=== PATIENT | female | born 1980 | race Caucasian/White ===

== ENCOUNTER → 2016-09-07 | Outpatient (CLI) | payer OTHER ==
[~2016-09-07] MED LIST: [UNRECOGNIZED DRUG - REMARK]
== END | disposition home or self-care (01) ==
LOC: C.PAPS 10:16
PROVIDERS: ATTEND Obstetrics & Gynecology
DX: Z01.419 Encounter for gynecological examination (general) (routine) without abnormal findings (principal)

== ENCOUNTER → 2016-11-19 | Outpatient (CLI) | payer OTHER ==
[2016-11-19 13:36] LABS: CHOLESTEROL/HDL RATIO 5.4; THYROID STIMULATING HORMONE 4.2 uIu/ml (0.300-4.500)
== END | disposition home or self-care (01) ==
LOC: C.LAB 09:13
PROVIDERS: ATTEND Family Medicine
DX: Z13.220 Encounter for screening for lipoid disorders (principal); Z13.1 Encounter for screening for diabetes mellitus; E03.4 Atrophy of thyroid (acquired)

== ENCOUNTER → 2016-12-29 | Outpatient (CLI) | payer OTHER | END | disposition home or self-care (01) | LOC: C.LAB 10:05 | PROVIDERS: ATTEND Family Medicine | DX: E03.4 Atrophy of thyroid (acquired) (principal) ==

== ENCOUNTER → 2017-02-22 | Outpatient (CLI) | payer OTHER | END | disposition home or self-care (01) | LOC: C.LAB 11:14 | PROVIDERS: ATTEND Family Medicine | DX: E03.4 Atrophy of thyroid (acquired) (principal) ==

== ENCOUNTER → 2017-11-01 | Outpatient (CLI) | payer OTHER | END | disposition home or self-care (01) | LOC: C.PAPS 11:47 | PROVIDERS: ATTEND Obstetrics & Gynecology | DX: Z12.4 Encounter for screening for malignant neoplasm of cervix (principal) ==

== ENCOUNTER 2020-12-29 08:17 | Observation (INO) ==
[~2020-12-29 08:17] MED LIST changes: +SODIUM CHLORIDE 0.9% 1000ML 1,000 ML IV SCH; -[UNRECOGNIZED DRUG - REMARK]
--- NOTE | 2020-12-29 08:46 | Emergency Department Note ---
Impression & Plan Spontaneous miscarriage, Hemorrhage ED Provider Note CHIEF COMPLAINT: Miscarriage HISTORY OF PRESENTING ILLNESS: This is a 40-year-old female who presents to the emergency department via EMS from home with concern for miscarriage. The patient states that she had a sudden onset of severe abdominal cramping and then had a gush of bleeding this morning and the fetus passed but is still attached. Patient has been evaluated for vaginal bleeding in the emergency department, she was here a few days ago and the ultrasound was reassuring. She did have a subchorionic hematoma. The patient saw her MANAGER MANAGED CARE yesterday and again ultrasound imaging was reassuring at that time. She is G1, P0 and did utilize IVF for this . She is no longer having any abdominal pain and rates her pain level 0/10. She has not been having heavy vaginal bleeding since the initial gush of blood. She denies any chest pain, chest tightness, shortness of breath, palpitations, lightheadedness or syncope. She denies nausea or vomiting. She is O+ blood type. REVIEW OF SYSTEMS: A complete 10 point review of systems was reviewed with the patient with pertinent positives and negatives as per history of present illness. All else were negative. PAST MEDICAL HISTORY: Hypothyroidism SOCIAL HISTORY: Lives at home, she denies tobacco use ALLERGIES: No known allergies PHYSICAL EXAM: CONSTITUTIONAL: Pleasant and cooperative. Nontoxic-appearing and in no acute distress. Well appearing and well nourished. HEENT: Normocephalic, atraumatic. NECK: Supple, full active range of motion without discomfort. RESPIRATORY: Clear to auscultation bilaterally with no wheezing, crackles, rhonchi or stridor. Equal expansion bilaterally. CARDIOVASCULAR: Regular rate and rhythm with no murmurs, rubs or gallops. Normal peripheral perfusion. No edema. GASTROINTESTINAL: Soft, nontender to palpation, nondistended. No palpable masses or HSM. Bowel sounds present in all quadrants. No CVA tenderness bilaterally. PELVIC EXAM: VULVA: No ulcers, vesicles or atrophy. VAGINA: Moderate dark red blood with small clots, minimal active bleeding. No tissue palpated within the vaginal canal, no foul odor. CERVIX: Os is open to two finger widths, nontender, no cervical motion tenderness. UTERUS: Enlarged size, nontender, not boggy. ADNEXAE: No masses or tenderness. A nurse was present as a personnel worker during the examination. MUSCULOSKELETAL: Full range of motion of all joints without discomfort. INTEGUMENTARY: No rash or other significant dermatologic conditions noted. NEUROLOGIC: Alert and oriented X 4 with normal affect. Normal strength and sensation in all 4 extremities. Normal speech. Normal gait observed. ED COURSE AND MEDICAL DECISION MAKING: CC: Patient presenting with complaint of miscarriage DIFFERENTIAL DIAGNOSIS: Includes, but not limited to miscarriage incomplete versus complete, acute anemia, hemorrhage, bleeding dyscrasia, trauma, infection, as well as others were entertained. INTERPRETATION OF LABS: Mild leukocytosis and anemia (consistent with baseline), normal platelets. MEDICATION RECONCILIATION: I attest that I have personally reviewed the patient's current medication list. INITIAL VITAL SIGNS REVIEW: I reviewed the patient's initial vital signs and interpret them as follows: T: Afebrile; BP: Hypertensive; HR: Within normal limits; RR: Within normal limits; Pulse Ox: Within normal limits on room air. MDM SUMMARY: Patient was evaluated at bedside, history and physical exam performed. Patient is alert and oriented, in no acute distress, resting calmly in the stretcher. She is afebrile and nontoxic-appearing, does not appear to be significantly dehydrated or anemic. No abdominal tenderness on exam. On exam, a fetus consistent with 13 weeks gestation is protruding from the vaginal opening, fully intact, and still attached by the umbilical cord. There was no active vaginal bleeding noted externally. The fetus was detached from the umbilical cord and handed to the patient for her to hold him. Cardiac monitoring: An order was placed for continuous cardiac monitoring. The monitor shows a rate of 94 bpm with normal sinus rhythm. I spoke with Dr. Sequeira, she has active deliveries in process, and will come down to see the patient as soon as she can. She also notes that they will provide bereavement care for the passed baby. The family would like to take the baby home with them to have a service. An internal vaginal exam was performed, there was no placental tissue within the vaginal canal. The cervical os is open, not actively bleeding. Patient was also discussed with my ED attending Dr. Chacon, who agrees with my assessment, plan, and disposition. Dr. Sequeira did call back for an update on the patient, the patient has not had any progression of the miscarriage. She recommended that I give 600 mcg Cytotec, she requested that an IV be placed and she be given some fluids as well as a CBC and type and screen be ordered, these orders were placed. She will be down to see the patient shortly. She plans to admit the patient for observation. Shortly after the patient received the Cytotec, I was called to the bedside by nursing staff noting that the patient was having significant heavy vaginal bleeding. I performed a repeat pelvic exam, noting several clots within the vagina with large gushes of blood. Cervix was not visualized. The patient complained of cramping, she was given 15 mg IV Toradol. Clots were manually removed from the vagina by hand and I did attempt uterine massage, however the patient continued to have very heavy bleeding. The patient also started to become more tachycardic and her blood pressure is trending down. A second IV was placed by nursing and repeat H/H was sent to the lab. A second Liter bag of fluids was started. Dr. Chacon was called to the bedside to evaluate the patient. The patient did have a significant drop in her blood pressure, both IV fluid bags are wide open and the patient has remained conscious, though she does note feeling near syncopal. Additional pelvic exam was performed by Dr. Chacon, several more clots were evacuated and some tissue was removed from the cervical os and the bleeding did slow somewhat. The patient's blood pressure is improving and she has remained alert and oriented. Dr. Sequeira at bedside to further evaluate the patient, she was able to locate and remove the placenta. The patient is being transported upstairs for further observation to determine whether she may need surgery. Patient reassessed multiple times throughout ED stay, her blood pressure has stabilized and she is feeling improved. Hgb did drop 2.5 points on recheck, Dr. Sequeira is aware. The patient was monitored closely during the entirety of her ED stay. The patient and her were frequently updated and all questions were answered to the best of my ability. The patient was stable at the time of admission. CRITICAL CARE NOTE: I have personally spent greater than 45 minutes of critical care time in the direct management of this patient. This includes bedside care, interpretation of diagnostic studies, and testing, discussion with consultants, patient, and family members, and other required patient management activities. This 45 minutes is in excess of all separately billable procedures. The chart was completed utilizing [employer] Speech voice recognition software. Grammatical errors, random word insertions, pronoun errors, and incomplete sentences are an occasional consequence of this system due to software limitat ions, ambient noise, and hardware issues. Any formal questions or concerns about the content, text, or information contained within the body of this dictation should be directly addressed to the nurse practitioner for clarification. Past Med/Surg History Medical History (Updated 12/29/20 @ 17:15 by RICHARD Lyons) History of chicken pox Hypothyroid in , antepartum Spontaneous Surgical History H/O sinus surgery [place] teeth removed Family History Grandmother (Maternal) Factor 5 Leiden mutation, heterozygous Father Stroke Myocardial infarction Grandfather (Paternal) Stroke Diabetes Denies family history of Ovarian cancer Prostate cancer Breast cancer Colorectal cancer Social History Smoking Status: Never smoker Second Hand Exposure: No; Hx Alcohol Use: No Hx Substance Use: No Preferred Language: Sierra Leonean marital status: marital status details: Catracho Camarena (40) [phone] Current Living Situation: Spouse Current Living Situation Comment: Lives with spouse, mother in law, 2 dogs current occupational status: employed 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 Feels Safe at Home: Yes Allergies Allergies Allergy/AdvReac Type Severity Reaction Status Date / Time No Known Allergies Allergy Mild Verified 12/29/20 09:23 Home Meds Home Medications Medication Instructions Recorded Confirmed cetirizine 10 mg tablet 10 mg PO DAILY PRN 11/16/20 12/29/20 levothyroxine 175 mcg tablet 175 mcg PO DAILY 11/16/20 12/29/20 [id number] fumarate-FA 1 tab PO DAILY 12/15/20 12/29/20 [] cholecalciferol (vitamin D3) 125 mcg PO DAILY 12/15/20 12/29/20 [Vitamin D3] inositol 0 mg PO DAILY 12/15/20 12/29/20 omega 3-shk-hmu-fish oil [Fish Oil] 1 cap PO DAILY 12/15/20 12/29/20 Results & Data (ED) Vital Signs Vital Signs - 24 hr 12/29/20 08:23 12/29/20 11:47 12/29/20 13:00 Temperature 36.9 C Temperature Source Oral Pulse Rate 92 H 118 H Pulse Rate [Radial] 88 Pulse Rate from SpO2 Sensor 116 H Pulse Rhythm Regular Pulse Rhythm [Radial] Regular Pulse Strength Normal Pulse Strength [Radial] Normal Respiratory Rate 18 20 13 Respiratory Effort / Characteristics Non-Labored Spontaneous Respiratory Depth Normal Normal Respiratory Pattern Regular Blood Pressure 148/92 H 132/77 Blood Pressure [Right Arm] 128/78 Blood Pressure Mean 110 95 Blood Pressure Mean [Right Arm] 94 Blood Pressure Position [Right Arm] Lying Pulse Oximetry 98 100 97 Oxygen Delivery Method Room Air Room Air Sepsis Recent Fever Within 48 Hours No Sepsis New/Unexplained Change in Mental Status No Sepsis Action Taken by Nursing No Action Required 12/29/20 13:04 12/29/20 13:05 12/29/20 13:08 Temperature Temperature Source Pulse Rate 114 H 126 H 98 H Pulse Rate [Radial] Pulse Rate from SpO2 Sensor 117 H 124 H Pulse Rhythm Pulse Rhythm [Radial] Pulse Strength Pulse Strength [Radial] Respiratory Rate 19 18 14 Respiratory Effort / Characteristics Respiratory Depth Respiratory Pattern Blood Pressure 115/73 57/46 L Blood Pressure [Right Arm] Blood Pressure Mean 87 49 Blood Pressure Mean [Right Arm] Blood Pressure Position [Right Arm] Pulse Oximetry 99 100 Oxygen Delivery Method Sepsis Recent Fever Within 48 Hours Sepsis New/Unexplained Change in Mental Status Sepsis Action Taken by Nursing 12/29/20 13:10 12/29/20 13:13 12/29/20 13:15 Temperature Temperature Source Pulse Rate 99 H 99 H 102 H Pulse Rate [Radial] Pulse Rate from SpO2 Sensor 100 H 104 H Pulse Rhythm Pulse Rhythm [Radial] Pulse Strength Pulse Strength [Radial] Respiratory Rate 16 14 9 L Respiratory Effort / Characteristics Respiratory Depth Respiratory Pattern Blood Pressure 67/57 L 105/63 Blood Pressure [Right Arm] Blood Pressure Mean 60 77 Blood Pressure Mean [Right Arm] Blood Pressure Position [Right Arm] Pulse Oximetry 99 98 Oxygen Delivery Method Sepsis Recent Fever Within 48 Hours Sepsis New/Unexplained Change in Mental Status Sepsis Action Taken by Nursing 12/29/20 13:17 12/29/20 13:21 12/29/20 13:25 Temperature Temperature Source Pulse Rate 104 H 129 H 108 H Pulse Rate [Radial] Pulse Rate from SpO2 Sensor 105 H 130 H 107 H Pulse Rhythm Pulse Rhythm [Radial] Pulse Strength Pulse Strength [Radial] Respiratory Rate 17 16 18 Respiratory Effort / Characteristics Respiratory Depth Respiratory Pattern Blood Pressure 113/73 112/84 110/77 Blood Pressure [Right Arm] Blood Pressure Mean 86 93 88 Blood Pressure Mean [Right Arm] Blood Pressure Position [Right Arm] Pulse Oximetry 98 98 100 Oxygen Delivery Method Sepsis Recent Fever Within 48 Hours Sepsis New/Unexplained Change in Mental Status Sepsis Action Taken by Nursing 12/29/20 13:30 12/29/20 13:36 12/29/20 13:41 Temperature Temperature Source Pulse Rate 102 H 106 H 103 H Pulse Rate [Radial] Pulse Rate from SpO2 Sensor 102 H 99 H Pulse Rhythm Pulse Rhythm [Radial] Pulse Strength Pulse Strength [Radial] Respiratory Rate 12 22 19 Respiratory Effort / Characteristics Respiratory Depth Respiratory Pattern Blood Pressure 121/75 137/101 H 114/67 Blood Pressure [Right Arm] Blood Pressure Mean 90 113 82 Blood Pressure Mean [Right Arm] Blood Pressure Position [Right Arm] Pulse Oximetry 100 98 Oxygen Delivery Method Sepsis Recent Fever Within 48 Hours Sepsis New/Unexplained Change in Mental Status Sepsis Action Taken by Nursing 12/29/20 13:45 12/29/20 13:50 Temperature Temperature Source Pulse Rate 99 H 99 H Pulse Rate [Radial] Pulse Rate from SpO2 Sensor 101 H 100 H Pulse Rhythm Pulse Rhythm [Radial] Pulse Strength Pulse Strength [Radial] Respiratory Rate 10 L 14 Respiratory Effort / Characteristics Respiratory Depth Respiratory Pattern Blood Pressure 112/78 121/74 Blood Pressure [Right Arm] Blood Pressure Mean 89 89 Blood Pressure Mean [Right Arm] Blood Pressure Position [Right Arm] Pulse Oximetry 100 100 Oxygen Delivery Method Sepsis Recent Fever Within 48 Hours Sepsis New/Unexplained Change in Mental Status Sepsis Action Taken by Nursing Laboratory Data Result diagrams: 12/29/20 13:15 Lab Results 12/29/20 12/29/20 12/29/20 Range/Units 11:02 11:02 11:44 WBC 13.48 H (4.8-10.8) K/uL RBC 3.73 L (4.2-5.4) M/uL Hgb 11.5 L (12.0-16.0) g/dL Hct 34.5 L (37-47) % MCV 92.5 (80-100) fL MCH 30.8 (25-34) pg MCHC 33.3 (32-36) g/dL RDW Std Deviation 47.4 H (36.4-46.3) fL RDW Coeff of Raman 14.1 (11.5-14.5) % Plt Count 254 (130-400) K/uL MPV 11.0 H (7.4-10.4) fL Immature Gran % (Auto) 0.3 % Neut % (Auto) 86.9 % Lymph % (Auto) 8.9 % [place] % (Auto) 3.6 % Eos % (Auto) 0.2 % Baso % (Auto) 0.1 % Neut # (Auto) 11.72 H (1.4-6.5) K/uL Lymph # (Auto) 1.20 (1.2-3.4) K/uL [place] # (Auto) 0.48 (0.11-0.59) K/uL Eos # (Auto) 0.03 (0-0.5) K/uL Baso # (Auto) 0.01 (0-0.2) K/uL Immature Gran # (Auto) 0.04 H (0.00-0.02) K/uL COVID-19 Eval Order Covid19 at [facility] SARS-CoV-2 (PCR) (Negative) Blood Type O Positive Antibody Screen NEGATIVE Crossmatch See Detail 12/29/20 12/29/20 Range/Units 11:44 13:15 WBC (4.8-10.8) K/uL RBC (4.2-5.4) M/uL Hgb 9.0 L (12.0-16.0) g/dL Hct 26.8 L (37-47) % MCV (80-100) fL MCH (25-34) pg MCHC (32-36) g/dL RDW Std Deviation (36.4-46.3) fL RDW Coeff of Raman (11.5-14.5) % Plt Count (130-400) K/uL MPV (7.4-10.4) fL Immature Gran % (Auto) % Neut % (Auto) % Lymph % (Auto) % [place] % (Auto) % Eos % (Auto) % Baso % (Auto) % Neut # (Auto) (1.4-6.5) K/uL Lymph # (Auto) (1.2-3.4) K/uL [place] # (Auto) (0.11-0.59) K/uL Eos # (Auto) (0-0.5) K/uL Baso # (Auto) (0-0.2) K/uL Immature Gran # (Auto) (0.00-0.02) K/uL COVID-19 Eval Order SARS-CoV-2 (PCR) NEGATIVE (Negative) Blood Type Antibody Screen Crossmatch Administered Medications Lactated Ringer's (Lr) 1,000 mls @ 125 mls/hr IV .Q8H PRN; Protocol PRN Reason: L&D Protocol Stop: 01/28/21 13:51 Last Admin: 12/29/20 15:38 Dose: 125 mls/hr Documented by: [id number] Discontinued Medications Doxycycline Hyclate (Doxycycline Hyclate 100 Mg Cap) 100 mg PO NOW STA Stop: 12/29/20 15:15 Last Admin: 12/29/20 15:38 Dose: 100 mg Documented by: [id number] Sodium Chloride (Nss 1000ml) 1,000 mls @ 999 mls/hr IV .Q1H1M ONE Stop: 12/29/20 11:43 Last Infusion: 12/29/20 12:40 Dose: 0 mls/hr Documented by: [id number] Admin: 12/29/20 11:39 Dose: 999 mls/hr Documented by: [id number] Sodium Chloride (Nss 1000ml) 1,000 mls @ 999 mls/hr IV .Q1H1M ONE Stop: 12/29/20 13:59 Last Infusion: 12/29/20 13:54 Dose: 0 mls/hr Documented by: [id number] Admin: 12/29/20 12:49 Dose: 999 mls/hr Documented by: [id number] Ketorolac Tromethamine (Ketorolac Tromethamine 15 Mg/Ml Vial) Confirm Administered Dose 15 mg .ROUTE .STK-MED ONE Stop: 12/29/20 12:50 Last Admin: 12/29/20 12:49 Dose: 15 mg Documented by: [id number] Misoprostol (Misoprostol 100 Mcg Tab) 600 mcg PO NOW STA Stop: 12/29/20 11:20 Last Admin: 12/29/20 11:41 Dose: 600 mcg Documented by: [id number] Discharge Plan Visit Data Chief Complaint: OB/Uterine Contractions Stated Complaint: MISCARRIAGE ED Provider: Tootie Chacon ED Midlevel Provider: Lizbeth Bustillos. Discharge Problem: Spontaneous miscarriage, Hemorrhage Patient Disposition: Admitted As Inpatient Discharge Instructions Interventions: ED Discharge Assessment Last Done: 12/29/20 14:29
[2020-12-29] MEDS ORDERED: SODIUM CHLORIDE 0.9% 1000ML 1,000 ML IV ONE ×2 (10:43→12:59)
[2020-12-29 11:13] LABS: Basophils # (auto) 0.01 K/uL (0-0.2); Basophils % (auto) 0.1 %; Eosinophils # (auto) 0.03 K/uL (0-0.5); Eosinophils % (auto) 0.2 %; Hematocrit (blood only) 34.5 % (37-47); Hemoglobin 11.5 g/dL (12.0-16.0); Immature Granulocytes # (auto) 0.04 K/uL (0.00-0.02); Immature Granulocytes % (auto) 0.3 %; Lymphocytes % (auto) 8.9 %; Mean Corpuscular Hemoglobin 30.8 pg (25-34); Mean Corpuscular Hgb Conc 33.3 g/dL (32-36); Mean Corpuscular Volume 92.5 fL (80-100); Monocytes # (auto) 0.48 K/uL (0.11-0.59); Monocytes % (auto) 3.6 %; Neutrophils # (auto) 11.72 K/uL (1.4-6.5); Neutrophils % (auto) 86.9 %; Platelet Count 254 K/uL (130-400); RDW Coefficient of Variation 14.1 % (11.5-14.5); RDW Standard Deviation 47.4 fL (36.4-46.3); Red Blood Count 3.73 M/uL (4.2-5.4); White Blood Count 13.48 K/uL (4.8-10.8)
[2020-12-29] MEDS ORDERED: miSOPROStoL 100 MCG TAB PO STA (11:19)
[2020-12-29] MEDS ORDERED: KETOROLAC TROMETHAMINE 15 MG/ML VIAL ONE (12:49)
[2020-12-29] MEDS ORDERED: miSOPROStoL 100 MCG TAB PO SCH (13:00)
[2020-12-29 13:24] LABS: Hematocrit (blood only) 26.8 % (37-47)
[2020-12-29] MEDS ORDERED: ONDANSETRON INJ 2 MG/ML 2 ML VIAL IV PRN ×2 (13:52→16:21)
--- NOTE | 2020-12-29 13:55 | History & Physical Report ---
Date of Service December 29, 2020 Assessment & Plan (1) Spontaneous : Admission and Anticipated Discharge Date Admission Date: spontaneous AB at 13 5/7 weeks with successful passage of fetus spontaneously followed by removal of placenta with ring forceps. will observe for now for any additional bleeding Hgb dropped from 11.5 to 9.0 patient not currently symptomatic. History of Present Illness Primary Care Provider: Khalida Pool MD The patient is a 40 yo white female who presents at 13w 5d with history of bleeding and passage of fetus at home. She had a known TERRA which originally was extensive at 8 cm in size. She had an ultrasound in the office yesterday which showed that the TERRA was now 4cm in size and her bleeding was now minimal and dark in color . no issues with cramping until passage of the fetus this morning. She presented to the ER with the fetus still attached by the umbilical cord. This was divided by the ER PA. The placenta did not appear to have delivered and bleeding was minimal on exam. She was given 600mcg cytotec orally at 1030 this morning. I was called to the ER at 1240 because of increased vaginal bleeding with clots. Allergies Allergy/AdvReac Type Severity Reaction Status Date / Time No Known Allergies Allergy Mild Verified 12/29/20 09:23 Home Medications Medication Instructions Recorded Confirmed Type cetirizine 10 mg tablet 10 mg PO DAILY PRN 11/16/20 12/29/20 History levothyroxine 175 mcg tablet 175 mcg PO DAILY 11/16/20 12/29/20 History [id number] fumarate-FA 1 tab PO DAILY 12/15/20 12/29/20 History [] cholecalciferol (vitamin D3) 125 mcg PO DAILY 12/15/20 12/29/20 History [Vitamin D3] inositol 0 mg PO DAILY 12/15/20 12/29/20 History omega 7-uvc-pri-fish oil [Fish Oil] 1 cap PO DAILY 12/15/20 12/29/20 History Patient History Medical History History of chicken pox Surgical History H/O sinus surgery [place] teeth removed Family History (Updated 11/16/20 @ 09:10 by Ramona Russ, RN) Grandmother (Maternal) Factor 5 Leiden mutation, heterozygous Father Stroke Myocardial infarction Grandfather (Paternal) Stroke Diabetes Denies family history of Ovarian cancer Prostate cancer Breast cancer Colorectal cancer Social History Smoking Status: Never smoker Second Hand Exposure: No; Preferred Language: Gabonese marital status: marital status details: Catracho Camarena (40) [phone] Current Living Situation: Spouse Current Living Situation Comment: Lives with spouse, mother in law, 2 dogs current occupational status: employed 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 the edge of placenta cake was grasped and removed intact . bleeding still minimal at this time. Results & Data ([facility]) Vital Signs (Past 12 Hours) Vital Signs Temp Pulse Pulse Resp BP BP Pulse Ox 12/29/20 11:47 88 20 128/78 100 12/29/20 08:23 98.4 F 92 H 18 148/92 H 98 Coding Level of Care Code 70442 OBS Care - Level 3 Diagnoses Spontaneous O03.9
[2020-12-29] MEDS ORDERED: DOXYCYCLINE HYCLATE 100 MG CAP PO STA (15:14)
[2020-12-29] MEDS ORDERED: ceFAZolin 2000MG 2,000 MG/15 ML SYR IV STA (15:25)
[2020-12-29] MEDS: LACTATED RINGER'S 1,000 ML IV PRN ×2 (15:38→23:48)
--- NOTE | 2020-12-29 15:40 | Anesthesiology Consultation ---
Date of Service December 29, 2020 Assessment & Plan (1) Encounter for pre-operative examination: Chart Review Chart Review: Acceptable Risk for Surgery and Patient NOT seen in Pre Admission Testing Consults Requested none History Surgery Operation Date: 12/29/20 08:20 Proposed Procedures p Dilation and Curettage - Tatum Bates MD, FACOG Height/Weight Height: 5 ft 4 in Weight: 95 kg Allergies Allergy/AdvReac Type Severity Reaction Status Date / Time No Known Allergies Allergy Mild Verified 12/29/20 09:23 Medications Home Medications Medication Instructions Recorded Confirmed Last Taken cetirizine 10 mg tablet 10 mg PO DAILY PRN 11/16/20 12/29/20 12/24/20 levothyroxine 175 mcg tablet 175 mcg PO DAILY 11/16/20 12/29/20 12/24/20 [id number] fumarate-FA 1 tab PO DAILY 12/15/20 12/29/20 12/24/20 [] cholecalciferol (vitamin D3) 125 mcg PO DAILY 12/15/20 12/29/20 12/24/20 [Vitamin D3] inositol 0 mg PO DAILY 12/15/20 12/29/20 12/24/20 omega 5-iyw-jru-fish oil [Fish Oil] 1 cap PO DAILY 12/15/20 12/29/20 12/24/20 Active Medications Generic Name Dose Route Start Last Admin Trade Name Freq PRN Reason Stop Dose Admin Lactated Ringer's 1,000 mls @ 125 mls/hr 12/29/20 13:52 12/29/20 15:38 Lr IV 01/28/21 13:51 125 mls/hr .Q8H PRN Administration L&D Protocol Protocol Past Medical History Medical History (Updated 12/29/20 @ 15:40 by Dereck Betancourt MD) History of chicken pox Hypothyroid in , antepartum Spontaneous Past Family History Family History Grandmother (Maternal) Factor 5 Leiden mutation, heterozygous Father Stroke Myocardial infarction Grandfather (Paternal) Stroke Diabetes Denies family history of Ovarian cancer Prostate cancer Breast cancer Colorectal cancer Past Surgical History Surgical History H/O sinus surgery [place] teeth removed Social History Smoking Status: Never smoker Physical Exam Vital Signs Last Vital Signs Temp 36.9 C 12/29/20 14:29 Pulse 102 H 12/29/20 14:29 Resp 19 12/29/20 14:29 BP 108/62 12/29/20 14:29 Pulse Ox 100 12/29/20 14:29 Testing Laboratory Results 12/29/20 13:15 Blood Type O Positive 12/29/20 11:02 Antibody Screen NEGATIVE 12/29/20 11:02 Electrocardiogram Date: 12/24/20 DICTATED BY: Yahir Calderón, DO Test Reason : Blood Pressure : / mmHG Vent. Rate : 076 BPM Atrial Rate : 076 BPM P-R Int : 116 ms QRS Dur : 084 ms QT Int : 386 ms P-R-T Axes : 014 035 006 degrees QTc Int : 434 ms Normal sinus rhythm Nonspecific T wave abnormality Abnormal ECG When compared with ECG of 11-FEB-2007 13:14, Nonspecific T wave abnormality now evident in Anterolateral leads and inferior leads Confirmed by Yahir Calderón ([id number]) on 12/25/2020 9:22:58 AM
[2020-12-29] MEDS ORDERED: SODIUM CHLORIDE 0.9% 250 ML IV PRN (15:45)
[2020-12-29] MEDS ORDERED: ONDANSETRON INJ 2 MG/ML 2 ML VIAL ONE (16:06)
[2020-12-29] MEDS ORDERED: PROPOFOL IV EMULSION 10 MG/ML 20 ML VIAL IV ONE (16:06)
[2020-12-29] MEDS ORDERED: DEXAMETHASONE SOD INJ 4 MG/ML VIAL ONE (16:06)
[2020-12-29] MEDS ORDERED: fentaNYL citrate 100 MCG/2 ML VIAL ONE (16:07)
[2020-12-29] MEDS ORDERED: ATROPINE SULFATE 0.1 MG/ML 10ML SYR IV PRN (16:21)
[2020-12-29] MEDS ORDERED: fentaNYL citrate 100 MCG/2 ML VIAL IV PRN (16:21)
[2020-12-29] MEDS ORDERED: ePHEDrine sulfate 50 MG/ML AMP IV PRN (16:21)
--- NOTE | 2020-12-29 16:23 | History & Physical Bridge Note ---
Date of Service December 29, 2020 History & Physical Bridge Note I have examined the patient, reviewed the History & Physical and in the interval since the performance of the History & Physical I have noted the following changes of clinical significance: no changes noted
--- NOTE | 2020-12-29 16:26 | Obstetrical Progress Note ---
Date of Service December 29, 2020 Assessment & Plan Admission and Anticipated Discharge Date Admission Date: December 29, 2020 Subjective continues to have significant bleeding with clots and cramping will need to do D&C/ D&E for possible retained POC patient and hsuband agreeable to plan for D&C./D&E consent signed after the procedure and risks reviewed with patient and her . T&C for 2 units of blood. Results & Data ([facility]) Vital Signs (Past 12 Hours) Vital Signs Temp Pulse Pulse Resp BP BP Pulse Ox 12/29/20 15:41 98.6 F 18 12/29/20 14:29 98.4 F 102 H 19 108/62 100 12/29/20 14:25 102 H 19 108/62 100 12/29/20 14:20 97 H 16 122/70 100 12/29/20 14:15 103 H 15 119/71 99 12/29/20 14:10 99 H 14 118/67 99 12/29/20 14:05 95 H 22 118/72 99 12/29/20 14:00 97 H 14 126/66 99 12/29/20 13:55 98 H 18 109/75 100 12/29/20 13:50 99 H 14 121/74 100 12/29/20 13:45 99 H 10 L 112/78 100 12/29/20 13:41 103 H 19 114/67 98 12/29/20 13:36 106 H 22 137/101 H 12/29/20 13:30 102 H 12 121/75 100 12/29/20 13:25 108 H 18 110/77 100 12/29/20 13:21 129 H 16 112/84 98 12/29/20 13:17 104 H 17 113/73 98 12/29/20 13:15 102 H 9 L 98 12/29/20 13:13 99 H 14 105/63 99 12/29/20 13:10 99 H 16 67/57 L 12/29/20 13:08 98 H 14 57/46 L 12/29/20 13:05 126 H 18 115/73 100 12/29/20 13:04 114 H 19 99 12/29/20 13:00 118 H 13 132/77 97 12/29/20 11:47 88 20 128/78 100 12/29/20 08:23 98.4 F 92 H 18 148/92 H 98 PG Care Time/CCT Total # of Minutes Spent Total Time Spent with Patient: Total time spent is greater than 50% in coordination of care (as documented) at patient's floor/unit and/or counseling patient: Coding Level of Care Code 60148 Subseq Obs Care Lvl 3
[2020-12-29] MEDS ORDERED: OXYTOCIN 10 UNITS/ML VIAL ONE (16:52)
[2020-12-29] MEDS ORDERED: PHENYLEPHRINE 100MCG/ML 5ML SYR ONE (16:59)
[2020-12-29] MEDS ORDERED: KETOROLAC 30 MG/ML VIAL ONE (17:05)
--- NOTE | 2020-12-29 17:07 | Post Operative Brief Note ---
PG Immediate Post Op with CF Date of Surgery December 29, 2020 Pre & Post Diagnosis Operation Date: 12/29/20 08:20 Pre-Op Diagnosis: Retained products of conception. Post-Op Diagnosis: Retained products of conception. I identified the patient and participated in the time-out.: Yes Procedure Operation Date: 12/29/20 08:20 Actual Procedures p Dilation and Curettage with suction. - Tatum Bates MD, FACOG Surgeon Tatum Bates MD, FACOG [employer] Consultant none Estimated Blood Loss 150 Findings Consistent with Post-Op Diagnosis Specimens Specimen Description: A. Retained products of conception.
[2020-12-29] MEDS ORDERED: IBUPROFEN 600 MG TAB PO PRN (17:09)
[2020-12-29] MEDS ORDERED: oxyCODONE/ACETAMINOPHEN 5mg/325mg TAB PO PRN (17:09)
[2020-12-29] MEDS ORDERED: KETOROLAC 30 MG/ML VIAL IV PRN (17:09)
--- NOTE | 2020-12-29 17:36 | Operative Report ---
PG Post Operative Report Pre & Post Diagnosis Operation Date: 12/29/20 08:20 Pre-Op Diagnosis: Retained products of conception. Post-Op Diagnosis: Retained products of conception. I identified the patient and participated in the time-out.: Yes Procedure Operation Date: 12/29/20 08:20 Actual Procedures p Dilation and Curettage with suction. - Tatum Bates MD, FACOG Surgeon Tatum Bates MD, FACOG Mysql Database Administrator none Estimated Blood Loss 150 Findings Consistent with Post-Op Diagnosis External genitalia within normal limits. There was several moderate sized clots in the vagina. Cervical os was still dilated enough to admit a #10 evacuator. There was no obvious tissue in the cervical os. Uterus was still 10 to 12 weeks size. There were no adnexal masses palpated. A moderate amount of retained tissue was removed during the case. Specimens retained POC Drains none Anesthesia Type General Complications none Disposition Accompanied Patient To Recovery: Yes Disposition: Recovery Room Indications The patient is a 40-year-old 1 para 0 white female who is with an IVF assisted conception. She had had AN 8 cm subchorionic hemorrhage approximately 2 weeks ago. She was seen in the office yesterday for a follow-up OB visit and ultrasound was reassuring with reduction of the subchorionic hemorrhage to approximately 4 cm in size. She developed some cramping early this morning followed by an increase in bleeding which was not excessive. However shortly following this bleed she delivered the 14-week fetus. She presented to the emergency room and it was noted that the placenta was still not delivered. In the emergency room, I was able to remove what I thought was the placenta with ring forceps. This was after she received 1 dose of 600 mcg of Cytotec. She continued to have significant bleeding despite the removal of the tissue. It was felt prudent to proceed with D&C and D&E because of the ongoing bleeding for suspected retained placental tissue. Patient and her are agreeable to this procedure after the risks were reviewed and all of their questions were answered. Description of Procedure After the patient received adequate general anesthesia she was prepped and draped in usual sterile fashion after her bladder was emptied a weighted speculum was placed in the vagina and the anterior lip of the cervix was grasped with a Allis clamp. The cervix was already dilated enough to admit a ring forcep. A sharp curettage was initially performed for a small amount of tissue. The #10 evacuator was then used and a moderate amount of additional tissue was removed. Post evacuation curettage revealed good uterine cry throughout. She was observed for any additional bleeding for 30 minutes afterwards and bleeding remained minimal. Patient tolerated the procedure well and was stable upon arrival in recovery room. I attest to the content of the Intraoperative Record and any orders documented therein. Any exceptions are noted below. DESIGN DRAFTER CHIEF Minor Procedure Codes D&E/D&C 98105 D&E, 2nd Tri ([facility])
[2020-12-29 17:40] LABS: Basophils # (auto) 0.01 K/uL (0-0.2); Basophils % (auto) 0.1 %; Eosinophils # (auto) 0.01 K/uL (0-0.5); Eosinophils % (auto) 0.1 %; Hematocrit (blood only) 23.9 % (37-47); Hemoglobin 7.8 g/dL (12.0-16.0); Immature Granulocytes # (auto) 0.05 K/uL (0.00-0.02); Immature Granulocytes % (auto) 0.3 %; Lymphocytes # (auto) 1.08 K/uL (1.2-3.4); Lymphocytes % (auto) 7.5 %; Mean Corpuscular Hemoglobin 30.7 pg (25-34); Mean Corpuscular Volume 94.1 fL (80-100); Mean Platelet Volume 11.1 fL (7.4-10.4); Monocytes # (auto) 0.81 K/uL (0.11-0.59); Monocytes % (auto) 5.7 %; Neutrophils # (auto) 12.37 K/uL (1.4-6.5); Neutrophils % (auto) 86.3 %; Nucleated RBC # (auto) 0.02 K/uL (0-0); Nucleated RBC % (auto) 0.2 %; Platelet Count 224 K/uL (130-400); RDW Coefficient of Variation 14.1 % (11.5-14.5); RDW Standard Deviation 48.6 fL (36.4-46.3); Red Blood Count 2.54 M/uL (4.2-5.4); White Blood Count 14.33 K/uL (4.8-10.8)
[2020-12-29 17:41] LABS: Mean Corpuscular Hgb Conc 32.6 g/dL (32-36)
--- NOTE | 2020-12-29 17:50 | Anesthesiology Progress Note ---
Date of Service December 29, 2020 Anesthesia Post Procedure Vital Signs Vital Signs: Temp Pulse Pulse Pulse Resp BP BP 12/29/20 17:45 85 12 110/67 12/29/20 17:35 87 12 110/66 12/29/20 17:25 98 H 12 111/66 12/29/20 17:15 36.4 C L 107 H 22 96/67 L 12/29/20 16:36 37.3 C 101 H 18 12/29/20 15:41 37.0 C 18 12/29/20 14:29 36.9 C 102 H 19 108/62 12/29/20 14:25 102 H 19 108/62 12/29/20 14:20 97 H 16 122/70 12/29/20 14:15 103 H 15 119/71 12/29/20 14:10 99 H 14 118/67 12/29/20 14:05 95 H 22 118/72 12/29/20 14:00 97 H 14 126/66 12/29/20 13:55 98 H 18 109/75 12/29/20 13:50 99 H 14 121/74 12/29/20 13:45 99 H 10 L 112/78 12/29/20 13:41 103 H 19 114/67 12/29/20 13:36 106 H 22 137/101 H 12/29/20 13:30 102 H 12 121/75 12/29/20 13:25 108 H 18 110/77 12/29/20 13:21 129 H 16 112/84 12/29/20 13:17 104 H 17 113/73 12/29/20 13:15 102 H 9 L 12/29/20 13:13 99 H 14 105/63 12/29/20 13:10 99 H 16 67/57 L 12/29/20 13:08 98 H 14 57/46 L 12/29/20 13:05 126 H 18 115/73 12/29/20 13:04 114 H 19 12/29/20 13:00 118 H 13 132/77 12/29/20 11:47 88 20 12/29/20 08:23 36.9 C 92 H 18 148/92 H BP Pulse Ox 12/29/20 17:45 100 12/29/20 17:35 100 12/29/20 17:25 98 12/29/20 17:15 100 12/29/20 16:36 120/98 98 12/29/20 15:41 12/29/20 14:29 100 12/29/20 14:25 100 12/29/20 14:20 100 12/29/20 14:15 99 12/29/20 14:10 99 12/29/20 14:05 99 12/29/20 14:00 99 12/29/20 13:55 100 12/29/20 13:50 100 12/29/20 13:45 100 12/29/20 13:41 98 12/29/20 13:36 12/29/20 13:30 100 12/29/20 13:25 100 12/29/20 13:21 98 12/29/20 13:17 98 12/29/20 13:15 98 12/29/20 13:13 99 12/29/20 13:10 12/29/20 13:08 12/29/20 13:05 100 12/29/20 13:04 99 12/29/20 13:00 97 12/29/20 11:47 128/78 100 12/29/20 08:23 98 Pain Intensity Pelvic: Pain Intensity: 7 Transfer of Care Handoff Completed per policy Notes Mental Status: alert / awake / arousable and participated in evaluation Patient Amnestic to Procedure: Yes Nausea / Vomiting: adequately controlled Pain: adequately controlled Airway Patency, RR, SpO2: stable & adequate BP & HR: stable & adequate Hydration State: stable & adequate Anesthetic Complications: no major complications apparent and Pt Satisfied with anesthetic care
[2020-12-29 18:02] LABS: RBC Morphology Unremarkable
[2020-12-29 23:54] LABS: Hemoglobin 6.5 g/dL (12.0-16.0); Mean Corpuscular Hemoglobin 30.5 pg (25-34); Mean Corpuscular Hgb Conc 32.5 g/dL (32-36); Mean Corpuscular Volume 93.9 fL (80-100); Mean Platelet Volume 11.4 fL (7.4-10.4); Platelet Count 216 K/uL (130-400); RDW Coefficient of Variation 14.2 % (11.5-14.5); RDW Standard Deviation 48.6 fL (36.4-46.3); Red Blood Count 2.13 M/uL (4.2-5.4); White Blood Count 12.49 K/uL (4.8-10.8)
[2020-12-29 23:55] LABS: Immature Granulocytes # (auto) 0.07 K/uL (0.00-0.02); Immature Granulocytes % (auto) 0.6 %; Lymphocytes % (auto) 7.2 %; Monocytes # (auto) 0.36 K/uL (0.11-0.59); Monocytes % (auto) 2.9 %; Neutrophils # (auto) 11.16 K/uL (1.4-6.5); Neutrophils % (auto) 89.3 %; Polychromasia 1+
[2020-12-30] MEDS ORDERED: SODIUM CHLORIDE 0.9% 250 ML IV PRN ×2 (00:13→00:14)
--- NOTE | 2020-12-30 06:45 | Obstetrical Progress Note ---
Date of Service December 30, 2020 Assessment & Plan (1) Spontaneous miscarriage: bleeding minimal with no appreciable cramping (2) Hemorrhage: second unit of PRBC's done at 6am post transfusion H&H at 0800 if stable, discharge She has appt already on 01/16 so will keep it as a follow up appt. Admission and Anticipated Discharge Date Admission Date: December 29, 2020 Subjective feeling better this morning . no longer lightheaded or dizzy when ambulating. voiding well. bleeding now more of pink discharge then red minimal cramping. Review of Systems Review of Systems: All systems reviewed & are unremarkable except as noted in HPI & below Physical Exam Constitutional: WD/WN, vitals as above Psychiatric: A+Ox3, euthymic affect Genitourinary: soft & non tender abdomen Results & Data ([facility]) Vital Signs (Past 12 Hours) Vital Signs Temp Pulse Pulse Resp BP BP Pulse Ox 12/30/20 05:35 97.9 F 79 18 107/69 99 12/30/20 04:35 98.2 F 84 18 108/69 100 12/30/20 04:05 98.1 F 77 16 100/68 100 12/30/20 03:50 98.2 F 82 16 111/72 100 12/30/20 03:30 98.1 F 84 16 111/72 97 12/30/20 03:13 97.7 F 84 16 111/72 97 12/30/20 02:50 91 H 16 96/64 L 100 12/30/20 02:20 98.1 F 93 H 16 114/75 100 12/30/20 01:50 98.2 F 88 18 118/67 100 12/30/20 01:35 98.1 F 88 16 115/73 100 12/30/20 01:20 98.2 F 82 18 103/70 99 12/30/20 01:00 98.2 F 87 16 109/72 99 12/30/20 00:44 98.1 F 88 18 105/69 99 12/30/20 00:00 97.9 F 84 18 100/69 99 12/29/20 22:30 99.0 F 96 H 18 121/85 12/29/20 21:30 97.7 F 105 H 18 118/78 12/29/20 19:30 98.8 F 104 H 18 113/72 12/29/20 18:50 98.6 F 106 H 16 126/85 100 PG Care Time/CCT Total # of Minutes Spent Total Time Spent with Patient: Total time spent is greater than 50% in coordination of care (as documented) at patient's floor/unit and/or counseling patient: Coding Level of Care Code 44508 Subseq Obs Care Lvl 3 Diagnoses Spontaneous miscarriage O03.9 Hemorrhage R58
[2020-12-30 08:28] LABS: Hematocrit (blood only) 28.7 % (37-47); Hemoglobin 9.3 g/dL (12.0-16.0)
--- NOTE | 2021-01-04 13:48 | Discharge Summary (DS) ---
DATE OF ADMISSION: 12/29/2020 DATE OF DISCHARGE: 12/30/2020 PRINCIPAL DIAGNOSES: Spontaneous at 14 weeks gestation with retained products of conception with significant hemorrhage. PRINCIPAL PROCEDURE: D and E. HISTORY: The patient is a 40-year-old 1, P0 white female who became via IVF. She presented to the Emergency Room approximately 2 weeks ago with vaginal bleeding. She was noted to have a significant subchorionic hemorrhage present. On the day prior to this admission, she was seen in the office for a followup ultrasound, which showed reduction in the size of this subchorionic hemorrhage to half its original size. Her bleeding had gone to minimal bleeding at that time. The following day, she developed cramping early in the morning, then followed by an increase in the bleeding. Following the bleeding, she delivered the 14-week fetus. She presented to the Emergency Room at that time and the placenta was not to be delivered. She was given Cytotec 600 mg p.o. Following the Cytotec, she did have a significant bleed. The placenta had still not delivered and a significant portion of the placenta was able to be removed with ring forceps from the uterine cavity. She still continued to have bleeding, and therefore, it was felt prudent to proceed with D and E to remove any retained tissue. This was done without any difficulty. Following the D and E, her bleeding was minimal. The patient was, however, lightheaded and dizzy when ambulating. Her hemoglobin in the Emergency Room was 9.0 followed by an additional hemoglobin just prior to the D and E, it was 7.8. Post D and E, her hemoglobin was 6.5. Because her hematocrit and hemoglobin had dropped significantly, she received 2 units of packed cells. Post- transfusion, hemoglobin was 9.3 with hematocrit of 28.7. She was sent home in good condition with instructions to follow up in the office for her already scheduled visit on 01/16. She is to call for a temperature of 101 degrees or higher, heavy vaginal bleeding, increased pelvic pain, unusual discharge, or any other concerns. She is to start taking iron 1 tablet daily until seen in the office along with her vitamin. Job ID: [id number] [facility]
== END 2020-12-30 09:45 | disposition home or self-care (01) ==
LOC: 4N 08:17 → ED 08:17 → 4N 14:29

== ENCOUNTER 2021-12-31 18:38 | Inpatient (IN) ==
[2021-12-31] MEDS ORDERED: OXYTOCIN 30 UNITS/500 ML BAG IV PRN ×2 (19:55)
--- NOTE | 2021-12-31 20:03 | History & Physical Report ---
Date of Service December 31, 2021 Assessment & Plan (1) Supervision of elderly primigravida, antepartum: Plan: Admit to L&D. EFM/toco. IV. Initial BP elevated, will obtain Preeclampsia panel. Q1h blood glucose checks when in active labor. (2) Insulin controlled gestational diabetes mellitus (GDM) during , antepartum: History of Present Illness Chief Complaint: PROM Primary Care Provider: Khalida Pool MD 41yo @ 37 10/19, had PROM clear fluid today at 4pm. Is feeling mild ctx. No vaginal bleeding. + movement. complicated by: : 2 Full term: 0 Premature: 0 Total Number of Induced Abortions: 0 Total Number of Spontaneous Abortions: 1 Ectopics: 0 Multiple births: 0 Number of Living Children: 0 and Delivery Plans Covid Vaccine #1 07/14/20 (Moderna) Covid Vaccine #2 08/11/20 s/p Moderna booster s/p flu vaccine Donor Egg- 30 year old donor. AMA>40@del *Anatomy Scan @ 20wks * Echo - WNL *Growth scan @32wks *Weekly NST's @36 wks *Twice weekly NST @38wks *Weekly MARISSA's @38wks *Deliver by 41 wks IVF/ICSI * Echo (09/19/21 @ [facility] [place]WNL *Growth US Q4wks @28wks *Weekly NSTs @36wks *Weekly MARISSA's @36wks(ICSI only) Obesity (BMI between 35-39 @ beginning of ) *Growth US @ 32 wks *Weekly NSTs @ 36wks GDM on insulin *Wkly NSTs @32wks and Twice wkly @36wks *Serial growth US @28wks *Deliver by EDC Polyhydramnios *Weekly NST at Dx *Weekly MARISSA @ Dx *If pocket >16 Refer to [facility] *Deliver between 39 0/7 and 39 6/7 Jan 11 IOL Allergies Allergy/AdvReac Type Severity Reaction Status Date / Time No Known Allergies Allergy Mild Verified 12/31/21 19:07 Home Medications Medication Instructions Recorded Confirmed Type cetirizine 10 mg tablet (Zyrtec) 10 mg PO DAILY PRN 11/16/20 12/31/21 History levothyroxine 175 mcg tablet 200 mcg PO QAM 11/16/20 12/31/21 History (Synthroid) cholecalciferol (vitamin D3) 125 125 mcg PO QPM 12/15/20 12/31/21 History mcg (5,000 unit) tablet (Vitamin D3) omega 8-dmh-vfz-fish oil 1,000 mg 1 cap PO QPM 12/15/20 12/31/21 History (120 mg-180 mg) capsule (Fish Oil) vit no.133-ferrous 1 tab PO QAM 12/15/20 12/31/21 History fumarate 28 mg-folic acid 800 mcg tablet () aspirin 81 mg tablet,delayed 81 mg PO DAILY 06/15/21 12/31/21 History release (Adult Low Dose Aspirin) acetone (urine) test (Ketone Urine #50 ea 11/13/21 12/28/21 Rx Test) blood sugar diagnostic (OneTouch #150 ea 11/13/21 12/28/21 Rx Verio test strips) blood-glucose meter (OneTouch #1 ea 11/13/21 12/28/21 Rx Verio Reflect Meter) lancets 33 gauge (OneTouch Delica #150 ea 11/13/21 12/28/21 Rx Lancets) pen needle, diabetic 32 gauge x #100 ea 11/21/21 12/28/21 Rx 5/32" (BD Ultra-Fine Merari Pen Needle) insulin NPH isoph U-100 human 100 15 unit SUBCUT QPM 12/31/21 12/31/21 History unit/mL (3 mL) subcutaneous pen (Novolin N Flexpen) Patient History Medical History (Updated 11/21/21 @ 14:[address], LDN, CDE) Abnormal uterine bleeding (AUB) Asthma HX EXERCISE INDUCED -NO INHALERS Hemorrhage History of chicken pox History of obstetrical complication Hypothyroid in , antepartum Retained products of conception Spontaneous Surgical History H/O sinus surgery History of dilatation and curettage [place] teeth removed Family History Grandmother (Maternal) Factor 5 Leiden mutation, heterozygous Father Stroke Myocardial infarction Grandfather (Paternal) Stroke Diabetes Denies family history of Ovarian cancer Prostate cancer Breast cancer Colorectal cancer Social History (Updated 06/15/21 @ 11:05 by Barbara Hinojosa) Smoking Status: Never smoker Second Hand Exposure: No; Hx Alcohol Use: No Hx Substance Use: No Preferred Language: Korean Communication Ability: Effective Visual Impairment: No Limitations Cow Tender Required: No Beliefs That Will Affect Care: None marital status: marital status details: Catracho Camarena (40) [phone] Current Living Situation: Spouse Current Living Situation Comment: , [id number] current occupational status: employed 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 Other Information That Helps Us Care for You: No Feels Safe at Home: Yes Safety Concerns: Feels Safe At This Time Assistive Devices: None Review of Systems All systems reviewed & are unremarkable except as noted in HPI & below Physical Exam Physical Exam: FHT Cat 1 [place] Q 3-4 min SVE closed/thick/high/medium/mid EFW 7-8 Constitutional: WD/WN, vitals as above Respiratory: normal respiratory effort, lungs clear to auscultation no respiratory distress Cardiovascular: Rate/Rhythm: regular rate and regular rhythm Gastrointestinal (Abdomen): Inspection/Auscultation: abdomen normal to inspection Percussion/Palpation: abdomen soft; abdomen nontender Gravid. No s/s chorio or abruption. Skin: no rashes, warm and dry Psychiatric: A+Ox3, euthymic affect Results & Data ([facility]) Vital Signs (Past 12 Hours) Vital Signs Temp Pulse Resp BP 12/31/21 19:10 36.7 C 18 12/31/21 19:02 103 H 127/89 12/31/21 18:41 96 H 146/85 H 12/31/21 18:39 36.9 C 20 Coding Level of Care Code None Diagnoses Supervision of elderly primigravida, antepartum O09.519 Insulin controlled gestational diabetes mellitus (GDM) during , antepartum O24.414
[2021-12-31] MEDS: LACTATED RINGER'S 1,000 ML IV PRN (20:37)
[2021-12-31 20:45] LABS: Hematocrit (blood only) 42.7 % (37-47); Hemoglobin 14.7 g/dL (12.0-16.0); Mean Corpuscular Hemoglobin 30.9 pg (25-34); Mean Corpuscular Hgb Conc 34.4 g/dL (32-36); Mean Corpuscular Volume 89.7 fL (80-100); Mean Platelet Volume 12.1 fL (7.4-10.4); Platelet Count 190 K/uL (130-400); RDW Standard Deviation 46.1 fL (36.4-46.3); Red Blood Count 4.76 M/uL (4.2-5.4); White Blood Count 11.77 K/uL (4.8-10.8)
[2021-12-31 20:59] LABS: Albumin Globulin Ratio 0.9 (0.9-2); Albumin Level 3.4 gm/dl (3.4-5.0); BUN Creatinine Ratio 16.1 (10-20); Bilirubin,Total 0.3 mg/dl (0.2-1.0); Calcium 9.1 mg/dl (8.5-10.1); Creatinine Clr Calc Pharmacy 141.5 ml/min; Est GFR (African American) 128.9 ml/min; Est GFR (Non-African American) 111.2 ml/min; Globulin 3.8 gm/dl (2.5-4.0); Potassium 3.9 mmol/L (3.5-5.1); Total Protein 7.2 gm/dl (6.0-8.3)
[2021-12-31 21:16] LABS: Creatinine Urine Random 110.7 mg/dl; Protein Creatinine Ratio Urine 0.3 (0-0.2); Total Protein Urine Random 38.4 mg/dl (0-11.9)
[2022-01-01] MEDS ORDERED: ePHEDrine sulfate 50 MG/ML AMP ONE ×2 (00:16→15:55)
[2022-01-01] MEDS ORDERED: fentaNYL citrate 100 MCG/2 ML VIAL ONE (00:16)
[2022-01-01] MEDS ORDERED: BUPIVACAINE 0.25% 30 ML VIAL ONE (00:16)
[2022-01-01] MEDS ORDERED: SODIUM CHLORIDE 0.9% INJ 10 ML VIAL ONE (00:16)
[2022-01-01] MEDS ORDERED: fentaNYL 2MCG/ML ROPIVACAINE 1.25MG/ML 100 ML BAG EPI ONE (00:17)
[2022-01-01] MEDS: LACTATED RINGER'S 1,000 ML IV PRN ×2 (00:48→08:38)
--- NOTE | 2022-01-01 01:05 | Anesthesiology Consultation ---
Date of Service January 01, 2022 Assessment & Plan Chart Review Chart Review: Acceptable Risk for Labor Epidural Consults Requested none History Height/Weight Height: 5 ft 4 in Weight: 107.501 kg Allergies Allergy/AdvReac Type Severity Reaction Status Date / Time No Known Allergies Allergy Mild Verified 12/31/21 19:07 Medications Home Medications Medication Instructions Recorded Confirmed Last Taken cetirizine 10 mg tablet (Zyrtec) 10 mg PO DAILY PRN 11/16/20 12/31/21 12/31/21 levothyroxine 175 mcg tablet 200 mcg PO QAM 11/16/20 12/31/21 12/31/21 (Synthroid) cholecalciferol (vitamin D3) 125 125 mcg PO QPM 12/15/20 12/31/21 12/31/21 mcg (5,000 unit) tablet (Vitamin D3) omega 0-wzs-xxx-fish oil 1,000 mg 1 cap PO QPM 12/15/20 12/31/21 12/31/21 (120 mg-180 mg) capsule (Fish Oil) vit no.133-ferrous 1 tab PO QAM 12/15/20 12/31/21 12/31/21 fumarate 28 mg-folic acid 800 mcg tablet () aspirin 81 mg tablet,delayed 81 mg PO DAILY 06/15/21 12/31/21 12/31/21 release (Adult Low Dose Aspirin) acetone (urine) test (Ketone Urine #50 ea 11/13/21 12/28/21 Unknown Test) blood sugar diagnostic (OneTouch #150 ea 11/13/21 12/28/21 Unknown Verio test strips) blood-glucose meter (OneTouch #1 ea 11/13/21 12/28/21 Unknown Verio Reflect Meter) lancets 33 gauge (OneTouch Delica #150 ea 11/13/21 12/28/21 Unknown Lancets) pen needle, diabetic 32 gauge x #100 ea 11/21/21 12/28/21 Unknown " (BD Ultra-Fine Merair Pen Needle) insulin NPH isoph U-100 human 100 15 unit SUBCUT QPM 12/31/21 12/31/21 12/30/21 unit/mL (3 mL) subcutaneous pen (Novolin N Flexpen) Active Medications Generic Name Dose Route Start Last Admin Trade Name Freq PRN Reason Stop Dose Admin Oxytocin 30 units in 500 mls @ 9 mls/hr 12/31/21 19:55 12/31/21 23:30 Pitocin IV 01/02/22 19:54 0.54 units/hr .Q24H PRN 9 mls/hr Labor Induction/Augmentation Titration Protocol 0.54 UNITS/HR Lactated Ringer's 1,000 mls @ 125 mls/hr 12/31/21 19:55 01/01/22 00:48 Lr IV 01/02/22 19:54 125 mls/hr .Q8H PRN Administration L&D Protocol Protocol Past Medical History Medical History (Updated 12/31/21 @ 23:37 by Milagros Newton, RN) Abnormal uterine bleeding (AUB) Asthma HX EXERCISE INDUCED -NO INHALERS Hemorrhage with SAB in 2020. Needed blood transfusion History of chicken pox History of obstetrical complication Hypothyroid in , antepartum Retained products of conception Spontaneous Past Family History Family History Grandmother (Maternal) Factor 5 Leiden mutation, heterozygous Father Stroke Myocardial infarction Grandfather (Paternal) Stroke Diabetes Denies family history of Ovarian cancer Prostate cancer Breast cancer Colorectal cancer Past Surgical History Surgical History (Updated 12/31/21 @ 23:37 by Milagros Newton, RUT) H/O sinus surgery History of dilatation and curettage 2020 with SAB [place] teeth removed Social History Smoking Status: Never smoker Hx Alcohol Use: No Hx Substance Use: No Physical Exam Vital Signs Last Vital Signs Temp 36.6 C 01/01/22 00:25 Pulse 87 01/01/22 00:59 Resp 18 01/01/22 00:00 BP 117/65 01/01/22 00:59 Pulse Ox 100 01/01/22 00:59 Testing Laboratory Results 12/31/21 20:12 12/31/21 20:12
[2022-01-01] MEDS ORDERED: NALOXONE HCL 0.4 MG/1 ML VIAL/CARP IV PRN ×2 (01:07→18:10)
[2022-01-01] MEDS ORDERED: NALOXONE HCL 1 MG in SODIUM CHLORIDE 0.9% 1000ML 1,000 ML IV PRN ×2 (01:07→18:10)
[2022-01-01] MEDS ORDERED: NALBUPHINE HCL INJ 10 MG/ML AMP IV PRN ×2 (01:07→18:10)
[2022-01-01] MEDS ORDERED: diphenhydrAMINE 50 MG/ML VIAL IV PRN ×2 (01:07→18:10)
[2022-01-01] MEDS ORDERED: ePHEDrine sulfate 50 MG/ML AMP IV PRN ×2 (01:07→18:10)
[2022-01-01] MEDS ORDERED: SODIUM CHLORIDE 0.9% 250 ML IV PRN (01:16)
[2022-01-01] MEDS: ONDANSETRON INJ 2 MG/ML 2 ML VIAL IV PRN ×3 (05:46→13:18)
--- NOTE | 2022-01-01 06:56 | Labor Progress Brief Note ---
Date of Service January 01, 2022 Subjective Comfortable with epidural. FHT Cat 1 [place] Q 2 SVE /-1. some bloody show. With epidural, able to more easily examine pelvis - patient does seem to have a narrow pubic arch. I discussed this with her. She has made significant cervical change overnight, and she is most interested in a vaginal delivery. Discussed potential risks of attempts at vaginal delivery, including shoulder dystocia or failure to descend. I think it is reasonable to continue, given her labor progress overnight, with labor with anticipation of . Answered her and FOB's questions. Assessment & Plan Admission and Anticipated Discharge Date Admission Date: December 31, 2021 Results & Data ([facility]) Vital Signs (Past 12 Hours) Vital Signs Temp Pulse Resp BP Pulse Ox 01/01/22 06:50 98 H 95 01/01/22 06:47 93 H 94 01/01/22 06:45 99 H 125/71 97 01/01/22 06:41 95 H 94 01/01/22 06:40 91 H 95 01/01/22 06:35 94 H 97 01/01/22 06:33 88 94 01/01/22 06:30 88 18 118/74 94 01/01/22 06:27 88 94 01/01/22 06:25 93 H 95 01/01/22 06:21 95 H 93 01/01/22 06:20 87 95 01/01/22 06:16 96 H 124/82 94 01/01/22 06:15 92 H 96 01/01/22 06:10 93 H 97 01/01/22 06:05 100 H 97 01/01/22 06:00 91 H 18 121/71 98 01/01/22 05:55 93 H 95 01/01/22 05:50 94 H 96 01/01/22 05:45 104 H 135/85 98 01/01/22 05:40 102 H 96 01/01/22 05:37 36.5 C 01/01/22 05:35 88 99 01/01/22 05:32 92 H 92 01/01/22 05:30 95 H 18 136/84 98 01/01/22 05:25 83 96 01/01/22 05:20 83 98 01/01/22 05:15 82 98 01/01/22 05:14 82 128/75 01/01/22 05:10 85 97 01/01/22 05:05 82 99 01/01/22 05:03 89 92 01/01/22 05:00 80 127/74 97 01/01/22 04:55 91 H 93 01/01/22 04:50 84 97 01/01/22 04:45 85 97 01/01/22 04:44 92 H 132/80 01/01/22 04:43 101 H 90 01/01/22 04:40 87 98 01/01/22 04:35 87 98 01/01/22 04:32 94 H 89 L 01/01/22 04:30 85 130/71 96 01/01/22 04:25 86 97 01/01/22 04:20 80 96 01/01/22 04:16 84 131/77 92 01/01/22 04:15 81 96 01/01/22 04:10 81 96 01/01/22 04:05 83 97 01/01/22 04:01 84 113/74 01/01/22 04:00 84 18 98 01/01/22 03:55 82 99 01/01/22 03:50 90 98 01/01/22 03:45 94 H 98 01/01/22 03:44 89 123/75 01/01/22 03:40 85 99 01/01/22 03:35 85 98 01/01/22 03:30 85 18 122/72 99 01/01/22 03:25 100 H 85 L 01/01/22 03:24 93 H 99 01/01/22 03:23 36.6 C 01/01/22 03:19 85 98 01/01/22 03:15 82 113/57 L 01/01/22 03:14 83 99 01/01/22 03:09 89 98 01/01/22 03:05 97 H 93 01/01/22 03:04 82 97 01/01/22 03:00 18 01/01/22 02:59 87 102/57 L 97 01/01/22 02:54 80 96 01/01/22 02:49 82 96 01/01/22 02:45 79 99/54 L 01/01/22 02:44 84 95 01/01/22 02:39 78 97 01/01/22 02:34 85 96 01/01/22 02:31 81 107/59 L 01/01/22 02:30 18 01/01/22 02:29 83 95 01/01/22 02:26 83 93 01/01/22 02:24 75 95 01/01/22 02:19 85 96 01/01/22 02:15 80 106/58 L 01/01/22 02:14 80 97 01/01/22 02:09 79 97 01/01/22 02:04 78 97 01/01/22 02:02 91 H 92 01/01/22 02:00 36.6 C 18 01/01/22 01:59 92 H 99 01/01/22 01:54 81 99 01/01/22 01:49 84 98 01/01/22 01:48 101 H 91 01/01/22 01:46 81 109/62 01/01/22 01:44 81 98 01/01/22 01:39 84 98 01/01/22 01:38 86 85 L 01/01/22 01:34 84 98 01/01/22 01:31 89 91 01/01/22 01:30 18 01/01/22 01:29 87 103/56 L 97 01/01/22 01:24 81 97 01/01/22 01:19 82 97 01/01/22 01:14 83 109/59 L 98 01/01/22 01:09 86 97 01/01/22 01:05 87 18 90 01/01/22 01:04 82 100 01/01/22 00:59 87 117/65 100 01/01/22 00:57 93 H 117/66 01/01/22 00:55 92 H 111/65 01/01/22 00:54 92 H 99 01/01/22 00:53 94 H 120/67 01/01/22 00:51 90 125/69 01/01/22 00:49 94 H 127/73 100 01/01/22 00:47 92 H 127/75 01/01/22 00:45 88 137/75 01/01/22 00:44 91 H 99 01/01/22 00:43 81 140/77 01/01/22 00:41 65 136/75 01/01/22 00:39 77 138/77 100 01/01/22 00:34 76 100 01/01/22 00:29 77 100 01/01/22 00:25 36.6 C 01/01/22 00:24 81 97 01/01/22 00:13 18 01/01/22 00:12 77 99 01/01/22 00:04 73 136/86 01/01/22 00:00 18 12/31/21 23:31 75 162/88 H 12/31/21 23:30 18 12/31/21 23:00 18 12/31/21 22:31 71 143/86 H 12/31/21 22:30 36.8 C 18 12/31/21 22:00 18 12/31/21 21:31 83 139/93 12/31/21 21:30 18 12/31/21 20:46 36.7 C 86 18 125/87 12/31/21 20:26 18 12/31/21 20:00 18 12/31/21 19:10 36.7 C 12/31/21 19:02 103 H 127/89 Coding Level of Care Code None
[2022-01-01] MEDS: fentaNYL 2MCG/ML ROPIVACAINE 1.25MG/ML 100 ML BAG EPI PRN ×2 (07:57→14:20)
[2022-01-01] MEDS ORDERED: ACETAMINOPHEN 325 MG TAB PO PRN (08:39)
[2022-01-01] MEDS ORDERED: CALCIUM CARBONATE 500 MG CHEWABLE TAB PO PRN (10:00)
--- NOTE | 2022-01-01 11:16 | Labor Progress Brief Note ---
Date of Service January 01, 2022 Subjective comfortable with epidural Assessment & Plan (1) Supervision of elderly primigravida, antepartum: (2) Insulin controlled gestational diabetes mellitus (GDM) during , antepartum: Plan: Agree wt Dr. Multani that the patient has a narrow pelvis. She is complete but station is still -1. Will try a couple of more position changes and then will start pushing. Discussed that won't know for sure until attempts to push. Will continue to monitor closely. Fetus mostly category one. Admission and Anticipated Discharge Date Admission Date: December 31, 2021 Physical Exam Physical Exam: cx--c/c/-1, head is molding, narrow outlet toco--q2-4min, pit at 13 efm--150s wtih mod variabiltiy, small accels, rare variable Results & Data ([facility]) Vital Signs (Past 12 Hours) Vital Signs Temp Pulse Resp BP Pulse Ox 01/01/22 11:10 93 H 98 01/01/22 11:07 106 H 93 01/01/22 11:05 95 H 97 01/01/22 11:01 85 123/75 94 01/01/22 11:00 36.5 C 85 96 01/01/22 10:56 92 H 94 01/01/22 10:55 87 96 01/01/22 10:50 96 H 96 01/01/22 10:49 90 94 01/01/22 10:45 92 H 127/74 96 01/01/22 10:40 91 H 98 01/01/22 10:35 95 H 98 01/01/22 10:31 87 138/74 01/01/22 10:30 91 H 99 01/01/22 10:25 87 98 01/01/22 10:20 93 H 96 01/01/22 10:16 94 H 126/71 01/01/22 10:15 98 H 97 01/01/22 10:11 87 94 01/01/22 10:10 86 95 01/01/22 10:05 92 H 95 01/01/22 10:04 92 H 93 01/01/22 10:00 102 H 133/82 95 01/01/22 09:56 91 H 94 01/01/22 09:55 87 96 01/01/22 09:50 92 H 97 06/20/22 09:49 97 H 93 01/01/22 09:45 91 H 97 01/01/22 09:44 90 122/61 01/01/22 09:41 85 94 01/01/22 09:40 86 96 01/01/22 09:35 85 93 01/01/22 09:30 89 123/62 96 01/01/22 09:25 87 97 01/01/22 09:23 94 H 94 01/01/22 09:20 91 H 97 01/01/22 09:15 93 H 125/70 95 01/01/22 09:10 85 97 01/01/22 09:09 85 92 01/01/22 09:05 88 97 01/01/22 09:03 88 93 01/01/22 09:00 90 123/64 95 01/01/22 08:57 90 93 01/01/22 08:56 36.5 C 20 01/01/22 08:55 97 H 96 01/01/22 08:52 91 H 94 01/01/22 08:50 91 H 95 01/01/22 08:46 92 H 94 01/01/22 08:45 95 H 129/65 94 01/01/22 08:40 101 H 95 01/01/22 08:35 98 H 97 01/01/22 08:30 107 H 123/76 96 01/01/22 08:28 104 H 94 01/01/22 08:25 102 H 97 01/01/22 08:20 96 H 94 01/01/22 08:19 92 H 94 01/01/22 08:15 97 H 132/78 96 01/01/22 08:13 94 H 94 01/01/22 08:10 96 H 97 01/01/22 08:07 98 H 94 01/01/22 08:05 91 H 96 01/01/22 08:00 97 H 131/79 95 01/01/22 07:55 100 H 97 01/01/22 07:50 91 H 96 01/01/22 07:45 95 H 128/80 95 01/01/22 07:40 93 H 96 01/01/22 07:37 96 H 93 01/01/22 07:35 94 H 96 01/01/22 07:31 36.6 C 92 H 20 139/82 01/01/22 07:30 92 H 95 01/01/22 07:25 105 H 95 01/01/22 07:23 97 H 94 01/01/22 07:20 96 H 95 01/01/22 07:17 91 H 93 01/01/22 07:15 97 H 127/78 96 01/01/22 07:12 91 H 94 01/01/22 07:10 95 H 94 01/01/22 07:07 92 H 91 01/01/22 07:05 98 H 97 01/01/22 07:01 94 H 130/76 01/01/22 07:00 91 H 18 95 01/01/22 06:55 102 H 95 01/01/22 06:54 92 H 94 01/01/22 06:50 98 H 95 01/01/22 06:47 93 H 94 01/01/22 06:45 99 H 125/71 97 01/01/22 06:41 95 H 94 01/01/22 06:40 91 H 95 01/01/22 06:35 94 H 97 01/01/22 06:33 88 94 01/01/22 06:30 88 18 118/74 94 01/01/22 06:27 88 94 01/01/22 06:25 93 H 95 01/01/22 06:21 95 H 93 01/01/22 06:20 87 95 01/01/22 06:16 96 H 124/82 94 01/01/22 06:15 92 H 96 01/01/22 06:10 93 H 97 01/01/22 06:05 100 H 97 01/01/22 06:00 91 H 18 121/71 98 01/01/22 05:55 93 H 95 01/01/22 05:50 94 H 96 01/01/22 05:45 104 H 135/85 98 01/01/22 05:40 102 H 96 01/01/22 05:37 36.5 C 01/01/22 05:35 88 99 01/01/22 05:32 92 H 92 01/01/22 05:30 95 H 18 136/84 98 01/01/22 05:25 83 96 01/01/22 05:20 83 98 01/01/22 05:15 82 98 01/01/22 05:14 82 128/75 01/01/22 05:10 85 97 01/01/22 05:05 82 99 01/01/22 05:03 89 92 01/01/22 05:00 80 127/74 97 01/01/22 04:55 91 H 93 01/01/22 04:50 84 97 01/01/22 04:45 85 97 01/01/22 04:44 92 H 132/80 01/01/22 04:43 101 H 90 01/01/22 04:40 87 98 01/01/22 04:35 87 98 01/01/22 04:32 94 H 89 L 01/01/22 04:30 85 130/71 96 01/01/22 04:25 86 97 01/01/22 04:20 80 96 01/01/22 04:16 84 131/77 92 01/01/22 04:15 81 96 01/01/22 04:10 81 96 01/01/22 04:05 83 97 01/01/22 04:01 84 113/74 01/01/22 04:00 84 18 98 01/01/22 03:55 82 99 01/01/22 03:50 90 98 01/01/22 03:45 94 H 98 01/01/22 03:44 89 123/75 01/01/22 03:40 85 99 01/01/22 03:35 85 98 01/01/22 03:30 85 18 122/72 99 01/01/22 03:25 100 H 85 L 01/01/22 03:24 93 H 99 01/01/22 03:23 36.6 C 01/01/22 03:19 85 98 01/01/22 03:15 82 113/57 L 01/01/22 03:14 83 99 01/01/22 03:09 89 98 01/01/22 03:05 97 H 93 01/01/22 03:04 82 97 01/01/22 03:00 18 01/01/22 02:59 87 102/57 L 97 01/01/22 02:54 80 96 01/01/22 02:49 82 96 01/01/22 02:45 79 99/54 L 01/01/22 02:44 84 95 01/01/22 02:39 78 97 01/01/22 02:34 85 96 01/01/22 02:31 81 107/59 L 01/01/22 02:30 18 01/01/22 02:29 83 95 06/20/22 02:26 83 93 01/01/22 02:24 75 95 01/01/22 02:19 85 96 01/01/22 02:15 80 106/58 L 01/01/22 02:14 80 97 01/01/22 02:09 79 97 01/01/22 02:04 78 97 01/01/22 02:02 91 H 92 01/01/22 02:00 36.6 C 18 01/01/22 01:59 92 H 99 01/01/22 01:54 81 99 01/01/22 01:49 84 98 01/01/22 01:48 101 H 91 01/01/22 01:46 81 109/62 01/01/22 01:44 81 98 01/01/22 01:39 84 98 01/01/22 01:38 86 85 L 01/01/22 01:34 84 98 01/01/22 01:31 89 91 01/01/22 01:30 18 01/01/22 01:29 87 103/56 L 97 01/01/22 01:24 81 97 01/01/22 01:19 82 97 01/01/22 01:14 83 109/59 L 98 01/01/22 01:09 86 97 01/01/22 01:05 87 18 90 01/01/22 01:04 82 100 01/01/22 00:59 87 117/65 100 01/01/22 00:57 93 H 117/66 01/01/22 00:55 92 H 111/65 01/01/22 00:54 92 H 99 01/01/22 00:53 94 H 120/67 01/01/22 00:51 90 125/69 01/01/22 00:49 94 H 127/73 100 01/01/22 00:47 92 H 127/75 01/01/22 00:45 88 137/75 01/01/22 00:44 91 H 99 01/01/22 00:43 81 140/77 01/01/22 00:41 65 136/75 01/01/22 00:39 77 138/77 100 01/01/22 00:34 76 100 01/01/22 00:29 77 100 01/01/22 00:25 36.6 C 01/01/22 00:24 81 97 01/01/22 00:13 18 01/01/22 00:12 77 99 01/01/22 00:04 73 136/86 01/01/22 00:00 18 12/31/21 23:31 75 162/88 H 12/31/21 23:30 18 Coding Level of Care Code None Diagnoses Supervision of elderly primigravida, antepartum O09.519 Insulin controlled gestational diabetes mellitus (GDM) during , antepartum O24.414
--- NOTE | 2022-01-01 13:58 | Labor Progress Brief Note ---
Date of Service January 01, 2022 Subjective Patient currently pushing in knee chest. comfortable Assessment & Plan (1) resulting from in vitro fertilization, antepartum: (2) Gestational diabetes mellitus (GDM) affecting , antepartum: Plan: Sugars are controlled. Has not quite been pushing for one hour. Difficult exam now that on knee chest. Will allow to push like this for 20 min or so and then will flip back over and recheck. fetus overall reassuring. Admission and Anticipated Discharge Date Admission Date: December 31, 2021 Physical Exam Physical Exam: cx--0? station toco--q2-4min efm--145 with mod variablity, accels to 170s, no decels Results & Data ([facility]) Vital Signs (Past 12 Hours) Vital Signs Temp Pulse Resp BP Pulse Ox 01/01/22 13:51 120 H 97 01/01/22 13:49 97 H 94 01/01/22 13:46 99 H 96 01/01/22 13:44 96 H 124/72 01/01/22 13:42 101 H 93 01/01/22 13:41 96 H 95 01/01/22 13:37 88 94 01/01/22 13:36 85 95 01/01/22 13:32 100 H 126/64 01/01/22 13:31 114 H 95 01/01/22 13:26 99 H 95 01/01/22 13:21 104 H 96 01/01/22 13:20 36.6 C 92 H 94 01/01/22 13:15 110 H 80 L 01/01/22 13:14 100 H 129/72 01/01/22 13:10 95 H 98 01/01/22 13:09 103 H 89 L 01/01/22 13:05 108 H 96 01/01/22 13:03 98 H 91 01/01/22 13:00 36.6 C 89 20 97 01/01/22 12:59 86 123/76 01/01/22 12:55 94 H 97 01/01/22 12:50 93 H 98 01/01/22 12:45 89 98 01/01/22 12:44 93 H 128/81 01/01/22 12:40 99 H 95 01/01/22 12:38 109 H 94 01/01/22 12:35 97 H 95 01/01/22 12:31 101 H 127/81 01/01/22 12:30 99 H 98 01/01/22 12:26 111 H 93 01/01/22 12:25 102 H 96 01/01/22 12:20 107 H 97 01/01/22 12:15 95 H 141/93 H 97 01/01/22 12:10 100 H 97 01/01/22 12:05 96 H 99 01/01/22 12:00 88 99 01/01/22 11:59 89 133/68 01/01/22 11:55 110 H 98 01/01/22 11:52 99 H 93 01/01/22 11:50 97 H 100 01/01/22 11:45 88 131/75 98 01/01/22 11:40 90 97 01/01/22 11:35 91 H 98 01/01/22 11:32 82 122/80 01/01/22 11:30 87 96 01/01/22 11:25 91 H 96 01/01/22 11:20 90 97 01/01/22 11:15 87 122/72 96 01/01/22 11:10 93 H 98 01/01/22 11:07 106 H 93 01/01/22 11:05 95 H 97 01/01/22 11:01 85 123/75 94 01/01/22 11:00 36.5 C 85 96 01/01/22 10:56 92 H 94 01/01/22 10:55 87 96 01/01/22 10:50 96 H 96 01/01/22 10:49 90 94 01/01/22 10:45 92 H 127/74 96 01/01/22 10:40 91 H 98 01/01/22 10:35 95 H 98 01/01/22 10:31 87 138/74 01/01/22 10:30 91 H 99 01/01/22 10:25 87 98 01/01/22 10:20 93 H 96 01/01/22 10:16 94 H 126/71 01/01/22 10:15 98 H 97 01/01/22 10:11 87 94 01/01/22 10:10 86 95 01/01/22 10:05 92 H 95 01/01/22 10:04 92 H 93 01/01/22 10:00 102 H 133/82 95 01/01/22 09:56 91 H 94 01/01/22 09:55 87 96 01/01/22 09:50 92 H 97 01/01/22 09:49 97 H 93 01/01/22 09:45 91 H 97 01/01/22 09:44 90 122/61 01/01/22 09:41 85 94 01/01/22 09:40 86 96 01/01/22 09:35 85 93 01/01/22 09:30 89 123/62 96 01/01/22 09:25 87 97 01/01/22 09:23 94 H 94 01/01/22 09:20 91 H 97 01/01/22 09:15 93 H 125/70 95 01/01/22 09:10 85 97 01/01/22 09:09 85 92 01/01/22 09:05 88 97 01/01/22 09:03 88 93 01/01/22 09:00 90 123/64 95 01/01/22 08:57 90 93 01/01/22 08:56 36.5 C 20 01/01/22 08:55 97 H 96 01/01/22 08:52 91 H 94 01/01/22 08:50 91 H 95 01/01/22 08:46 92 H 94 01/01/22 08:45 95 H 129/65 94 01/01/22 08:40 101 H 95 01/01/22 08:35 98 H 97 01/01/22 08:30 107 H 123/76 96 01/01/22 08:28 104 H 94 01/01/22 08:25 102 H 97 01/01/22 08:20 96 H 94 01/01/22 08:19 92 H 94 01/01/22 08:15 97 H 132/78 96 01/01/22 08:13 94 H 94 01/01/22 08:10 96 H 97 01/01/22 08:07 98 H 94 01/01/22 08:05 91 H 96 01/01/22 08:00 97 H 131/79 95 01/01/22 07:55 100 H 97 01/01/22 07:50 91 H 96 01/01/22 07:45 95 H 128/80 95 01/01/22 07:40 93 H 96 01/01/22 07:37 96 H 93 01/01/22 07:35 94 H 96 06/20/22 07:31 36.6 C 92 H 20 139/82 01/01/22 07:30 92 H 95 01/01/22 07:25 105 H 95 01/01/22 07:23 97 H 94 01/01/22 07:20 96 H 95 01/01/22 07:17 91 H 93 01/01/22 07:15 97 H 127/78 96 01/01/22 07:12 91 H 94 01/01/22 07:10 95 H 94 01/01/22 07:07 92 H 91 01/01/22 07:05 98 H 97 01/01/22 07:01 94 H 130/76 01/01/22 07:00 91 H 18 95 01/01/22 06:55 102 H 95 01/01/22 06:54 92 H 94 01/01/22 06:50 98 H 95 01/01/22 06:47 93 H 94 01/01/22 06:45 99 H 125/71 97 01/01/22 06:41 95 H 94 01/01/22 06:40 91 H 95 01/01/22 06:35 94 H 97 01/01/22 06:33 88 94 01/01/22 06:30 88 18 118/74 94 01/01/22 06:27 88 94 01/01/22 06:25 93 H 95 01/01/22 06:21 95 H 93 01/01/22 06:20 87 95 01/01/22 06:16 96 H 124/82 94 01/01/22 06:15 92 H 96 01/01/22 06:10 93 H 97 01/01/22 06:05 100 H 97 01/01/22 06:00 91 H 18 121/71 98 01/01/22 05:55 93 H 95 01/01/22 05:50 94 H 96 01/01/22 05:45 104 H 135/85 98 01/01/22 05:40 102 H 96 01/01/22 05:37 36.5 C 01/01/22 05:35 88 99 01/01/22 05:32 92 H 92 01/01/22 05:30 95 H 18 136/84 98 01/01/22 05:25 83 96 01/01/22 05:20 83 98 01/01/22 05:15 82 98 06/20/22 05:14 82 128/75 01/01/22 05:10 85 97 01/01/22 05:05 82 99 01/01/22 05:03 89 92 01/01/22 05:00 80 127/74 97 01/01/22 04:55 91 H 93 01/01/22 04:50 84 97 01/01/22 04:45 85 97 01/01/22 04:44 92 H 132/80 01/01/22 04:43 101 H 90 01/01/22 04:40 87 98 01/01/22 04:35 87 98 01/01/22 04:32 94 H 89 L 01/01/22 04:30 85 130/71 96 01/01/22 04:25 86 97 01/01/22 04:20 80 96 01/01/22 04:16 84 131/77 92 01/01/22 04:15 81 96 01/01/22 04:10 81 96 01/01/22 04:05 83 97 01/01/22 04:01 84 113/74 01/01/22 04:00 84 18 98 01/01/22 03:55 82 99 01/01/22 03:50 90 98 01/01/22 03:45 94 H 98 01/01/22 03:44 89 123/75 01/01/22 03:40 85 99 01/01/22 03:35 85 98 01/01/22 03:30 85 18 122/72 99 01/01/22 03:25 100 H 85 L 01/01/22 03:24 93 H 99 01/01/22 03:23 36.6 C 01/01/22 03:19 85 98 01/01/22 03:15 82 113/57 L 01/01/22 03:14 83 99 01/01/22 03:09 89 98 01/01/22 03:05 97 H 93 01/01/22 03:04 82 97 01/01/22 03:00 18 01/01/22 02:59 87 102/57 L 97 01/01/22 02:54 80 96 01/01/22 02:49 82 96 01/01/22 02:45 79 99/54 L 01/01/22 02:44 84 95 01/01/22 02:39 78 97 01/01/22 02:34 85 96 01/01/22 02:31 81 107/59 L 01/01/22 02:30 18 01/01/22 02:29 83 95 01/01/22 02:26 83 93 01/01/22 02:24 75 95 01/01/22 02:19 85 96 01/01/22 02:15 80 106/58 L 01/01/22 02:14 80 97 01/01/22 02:09 79 97 01/01/22 02:04 78 97 01/01/22 02:02 91 H 92 01/01/22 02:00 36.6 C 18 01/01/22 01:59 92 H 99 Coding Level of Care Code None Diagnoses resulting from in vitro fertilization, antepartum O09.819 Gestational diabetes mellitus (GDM) affecting , antepartum O24.419
--- NOTE | 2022-01-01 14:18 | Labor Progress Brief Note ---
Date of Service January 01, 2022 Subjective pushing about one hours. good energy Assessment & Plan (1) resulting from in vitro fertilization, antepartum: Plan: pushing with good effort for about an hour. Fetus overall reassuring. Will continue at this point as she has moved the baby a bit. Admission and Anticipated Discharge Date Admission Date: December 31, 2021 Physical Exam Physical Exam: cx--c/c/0-+1 with pushing toco--q2-4min, pit at 17 efm--160s with mod variability, small accels, variables with pushing Results & Data ([facility]) Vital Signs (Past 12 Hours) Vital Signs Temp Pulse Resp BP Pulse Ox 01/01/22 14:14 122 H 117/77 01/01/22 14:11 91 H 76 L 01/01/22 14:06 88 96 01/01/22 14:01 105 H 96 01/01/22 13:57 100 H 93 01/01/22 13:56 105 H 97 01/01/22 13:51 120 H 97 01/01/22 13:49 97 H 94 01/01/22 13:46 99 H 96 01/01/22 13:44 96 H 124/72 01/01/22 13:42 101 H 93 01/01/22 13:41 96 H 95 01/01/22 13:37 88 94 01/01/22 13:36 85 95 01/01/22 13:32 100 H 126/64 01/01/22 13:31 114 H 95 01/01/22 13:26 99 H 95 01/01/22 13:21 104 H 96 01/01/22 13:20 36.6 C 92 H 94 01/01/22 13:15 110 H 80 L 01/01/22 13:14 100 H 129/72 01/01/22 13:10 95 H 98 01/01/22 13:09 103 H 89 L 01/01/22 13:05 108 H 96 01/01/22 13:03 98 H 91 01/01/22 13:00 36.6 C 89 20 97 01/01/22 12:59 86 123/76 01/01/22 12:55 94 H 97 01/01/22 12:50 93 H 98 01/01/22 12:45 89 98 01/01/22 12:44 93 H 128/81 06/20/22 12:40 99 H 95 01/01/22 12:38 109 H 94 01/01/22 12:35 97 H 95 01/01/22 12:31 101 H 127/81 01/01/22 12:30 99 H 98 01/01/22 12:26 111 H 93 01/01/22 12:25 102 H 96 01/01/22 12:20 107 H 97 01/01/22 12:15 95 H 141/93 H 97 01/01/22 12:10 100 H 97 01/01/22 12:05 96 H 99 01/01/22 12:00 88 99 01/01/22 11:59 89 133/68 01/01/22 11:55 110 H 98 01/01/22 11:52 99 H 93 01/01/22 11:50 97 H 100 01/01/22 11:45 88 131/75 98 01/01/22 11:40 90 97 01/01/22 11:35 91 H 98 01/01/22 11:32 82 122/80 01/01/22 11:30 87 96 01/01/22 11:25 91 H 96 01/01/22 11:20 90 97 01/01/22 11:15 87 122/72 96 01/01/22 11:10 93 H 98 01/01/22 11:07 106 H 93 01/01/22 11:05 95 H 97 01/01/22 11:01 85 123/75 94 01/01/22 11:00 36.5 C 85 96 01/01/22 10:56 92 H 94 01/01/22 10:55 87 96 01/01/22 10:50 96 H 96 01/01/22 10:49 90 94 01/01/22 10:45 92 H 127/74 96 01/01/22 10:40 91 H 98 01/01/22 10:35 95 H 98 01/01/22 10:31 87 138/74 01/01/22 10:30 91 H 99 01/01/22 10:25 87 98 01/01/22 10:20 93 H 96 01/01/22 10:16 94 H 126/71 01/01/22 10:15 98 H 97 01/01/22 10:11 87 94 06/20/22 10:10 86 95 01/01/22 10:05 92 H 95 01/01/22 10:04 92 H 93 01/01/22 10:00 102 H 133/82 95 01/01/22 09:56 91 H 94 01/01/22 09:55 87 96 01/01/22 09:50 92 H 97 01/01/22 09:49 97 H 93 01/01/22 09:45 91 H 97 01/01/22 09:44 90 122/61 01/01/22 09:41 85 94 01/01/22 09:40 86 96 01/01/22 09:35 85 93 01/01/22 09:30 89 123/62 96 01/01/22 09:25 87 97 01/01/22 09:23 94 H 94 01/01/22 09:20 91 H 97 01/01/22 09:15 93 H 125/70 95 01/01/22 09:10 85 97 01/01/22 09:09 85 92 01/01/22 09:05 88 97 01/01/22 09:03 88 93 01/01/22 09:00 90 123/64 95 01/01/22 08:57 90 93 01/01/22 08:56 36.5 C 20 01/01/22 08:55 97 H 96 01/01/22 08:52 91 H 94 01/01/22 08:50 91 H 95 01/01/22 08:46 92 H 94 01/01/22 08:45 95 H 129/65 94 01/01/22 08:40 101 H 95 01/01/22 08:35 98 H 97 01/01/22 08:30 107 H 123/76 96 01/01/22 08:28 104 H 94 01/01/22 08:25 102 H 97 01/01/22 08:20 96 H 94 01/01/22 08:19 92 H 94 01/01/22 08:15 97 H 132/78 96 01/01/22 08:13 94 H 94 01/01/22 08:10 96 H 97 01/01/22 08:07 98 H 94 01/01/22 08:05 91 H 96 01/01/22 08:00 97 H 131/79 95 01/01/22 07:55 100 H 97 01/01/22 07:50 91 H 96 01/01/22 07:45 95 H 128/80 95 01/01/22 07:40 93 H 96 01/01/22 07:37 96 H 93 01/01/22 07:35 94 H 96 01/01/22 07:31 36.6 C 92 H 20 139/82 01/01/22 07:30 92 H 95 01/01/22 07:25 105 H 95 01/01/22 07:23 97 H 94 01/01/22 07:20 96 H 95 01/01/22 07:17 91 H 93 01/01/22 07:15 97 H 127/78 96 01/01/22 07:12 91 H 94 01/01/22 07:10 95 H 94 01/01/22 07:07 92 H 91 01/01/22 07:05 98 H 97 01/01/22 07:01 94 H 130/76 01/01/22 07:00 91 H 18 95 01/01/22 06:55 102 H 95 01/01/22 06:54 92 H 94 01/01/22 06:50 98 H 95 01/01/22 06:47 93 H 94 01/01/22 06:45 99 H 125/71 97 01/01/22 06:41 95 H 94 01/01/22 06:40 91 H 95 01/01/22 06:35 94 H 97 01/01/22 06:33 88 94 01/01/22 06:30 88 18 118/74 94 01/01/22 06:27 88 94 01/01/22 06:25 93 H 95 01/01/22 06:21 95 H 93 01/01/22 06:20 87 95 01/01/22 06:16 96 H 124/82 94 01/01/22 06:15 92 H 96 01/01/22 06:10 93 H 97 01/01/22 06:05 100 H 97 01/01/22 06:00 91 H 18 121/71 98 01/01/22 05:55 93 H 95 01/01/22 05:50 94 H 96 01/01/22 05:45 104 H 135/85 98 01/01/22 05:40 102 H 96 01/01/22 05:37 36.5 C 01/01/22 05:35 88 99 06/20/22 05:32 92 H 92 01/01/22 05:30 95 H 18 136/84 98 01/01/22 05:25 83 96 01/01/22 05:20 83 98 01/01/22 05:15 82 98 01/01/22 05:14 82 128/75 01/01/22 05:10 85 97 01/01/22 05:05 82 99 01/01/22 05:03 89 92 01/01/22 05:00 80 127/74 97 01/01/22 04:55 91 H 93 01/01/22 04:50 84 97 01/01/22 04:45 85 97 01/01/22 04:44 92 H 132/80 01/01/22 04:43 101 H 90 01/01/22 04:40 87 98 01/01/22 04:35 87 98 01/01/22 04:32 94 H 89 L 01/01/22 04:30 85 130/71 96 01/01/22 04:25 86 97 01/01/22 04:20 80 96 01/01/22 04:16 84 131/77 92 01/01/22 04:15 81 96 01/01/22 04:10 81 96 01/01/22 04:05 83 97 01/01/22 04:01 84 113/74 01/01/22 04:00 84 18 98 01/01/22 03:55 82 99 01/01/22 03:50 90 98 01/01/22 03:45 94 H 98 01/01/22 03:44 89 123/75 01/01/22 03:40 85 99 01/01/22 03:35 85 98 01/01/22 03:30 85 18 122/72 99 01/01/22 03:25 100 H 85 L 01/01/22 03:24 93 H 99 01/01/22 03:23 36.6 C 01/01/22 03:19 85 98 01/01/22 03:15 82 113/57 L 01/01/22 03:14 83 99 01/01/22 03:09 89 98 01/01/22 03:05 97 H 93 01/01/22 03:04 82 97 01/01/22 03:00 18 01/01/22 02:59 87 102/57 L 97 01/01/22 02:54 80 96 01/01/22 02:49 82 96 01/01/22 02:45 79 99/54 L 01/01/22 02:44 84 95 01/01/22 02:39 78 97 01/01/22 02:34 85 96 01/01/22 02:31 81 107/59 L 01/01/22 02:30 18 01/01/22 02:29 83 95 01/01/22 02:26 83 93 01/01/22 02:24 75 95 01/01/22 02:19 85 96 Coding Level of Care Code None Diagnoses resulting from in vitro fertilization, antepartum O09.819
[2022-01-01] MEDS ORDERED: AZITHROMYCIN 500 MG in DEXTROSE 5% 250 ML IV STA (14:47)
[2022-01-01] MEDS ORDERED: CITRIC ACID/SODIUM CITRATE 15 ML UDC PO SCH (14:51)
[2022-01-01] MEDS ORDERED: CITRIC ACID/SODIUM CITRATE 15 ML UDC ONE (14:52)
--- NOTE | 2022-01-01 14:59 | Labor Progress Brief Note ---
Date of Service January 01, 2022 Subjective Patient pushing with excellent maternal effort. Comfortable. Assessment & Plan (1) Supervision of elderly primigravida, antepartum: Plan: Patient aware that there have been concerns regarding possible CPD / narrow pelvis. Assessment by myself and Dr. Hill both (she was at bedside during and participated in this discussion) confirms that patient is making excellent effort, but succeeding mostly in creating an increasing caput succedaneum rather than true descent. It is likely that while tachycardia is worsening, station is not truly improving, and vaginal delivery may be remote if it's possible at all. Discussed with patient that we recommend moving to , and she and FOB are fully agreeable. Consent process completed. Admission and Anticipated Discharge Date Admission Date: December 31, 2021 Physical Exam Genitourinary: Caput to +1, narrow pelvic outlet appreciated. FHT tachycardic baseline to 180-190, moderate variability, +accels, +variables with pushing [place] Q2-3 head easily elevates well back up into the pelvis between pushes. Results & Data ([facility]) Vital Signs (Past 12 Hours) Vital Signs Temp Pulse Resp BP Pulse Ox 01/01/22 14:51 100 H 95 01/01/22 14:46 99 H 94 01/01/22 14:44 99 H 138/64 94 01/01/22 14:41 104 H 94 01/01/22 14:36 98 H 94 01/01/22 14:31 109 H 96 01/01/22 14:30 93 H 136/71 01/01/22 14:28 91 H 92 01/01/22 14:26 116 H 93 01/01/22 14:22 93 H 94 01/01/22 14:21 105 H 83 L 01/01/22 14:16 103 H 88 L 01/01/22 14:14 122 H 117/77 01/01/22 14:11 91 H 76 L 01/01/22 14:06 88 96 01/01/22 14:01 105 H 96 01/01/22 13:57 100 H 93 01/01/22 13:56 105 H 97 01/01/22 13:51 120 H 97 01/01/22 13:49 97 H 94 01/01/22 13:46 99 H 96 01/01/22 13:44 96 H 124/72 01/01/22 13:42 101 H 93 01/01/22 13:41 96 H 95 01/01/22 13:37 88 94 01/01/22 13:36 85 95 01/01/22 13:32 100 H 126/64 01/01/22 13:31 114 H 95 01/01/22 13:26 99 H 95 01/01/22 13:21 104 H 96 01/01/22 13:20 97.9 F 92 H 94 01/01/22 13:15 110 H 80 L 01/01/22 13:14 100 H 129/72 01/01/22 13:10 95 H 98 01/01/22 13:09 103 H 89 L 01/01/22 13:05 108 H 96 01/01/22 13:03 98 H 91 01/01/22 13:00 97.9 F 89 20 97 01/01/22 12:59 86 123/76 01/01/22 12:55 94 H 97 01/01/22 12:50 93 H 98 01/01/22 12:45 89 98 01/01/22 12:44 93 H 128/81 01/01/22 12:40 99 H 95 01/01/22 12:38 109 H 94 01/01/22 12:35 97 H 95 01/01/22 12:31 101 H 127/81 01/01/22 12:30 99 H 98 01/01/22 12:26 111 H 93 01/01/22 12:25 102 H 96 01/01/22 12:20 107 H 97 01/01/22 12:15 95 H 141/93 H 97 01/01/22 12:10 100 H 97 01/01/22 12:05 96 H 99 01/01/22 12:00 88 99 01/01/22 11:59 89 133/68 01/01/22 11:55 110 H 98 01/01/22 11:52 99 H 93 01/01/22 11:50 97 H 100 01/01/22 11:45 88 131/75 98 01/01/22 11:40 90 97 01/01/22 11:35 91 H 98 01/01/22 11:32 82 122/80 01/01/22 11:30 87 96 01/01/22 11:25 91 H 96 01/01/22 11:20 90 97 01/01/22 11:15 87 122/72 96 01/01/22 11:10 93 H 98 01/01/22 11:07 106 H 93 01/01/22 11:05 95 H 97 01/01/22 11:01 85 123/75 94 01/01/22 11:00 97.7 F 85 96 01/01/22 10:56 92 H 94 01/01/22 10:55 87 96 01/01/22 10:50 96 H 96 01/01/22 10:49 90 94 01/01/22 10:45 92 H 127/74 96 01/01/22 10:40 91 H 98 01/01/22 10:35 95 H 98 01/01/22 10:31 87 138/74 01/01/22 10:30 91 H 99 01/01/22 10:25 87 98 01/01/22 10:20 93 H 96 01/01/22 10:16 94 H 126/71 01/01/22 10:15 98 H 97 01/01/22 10:11 87 94 01/01/22 10:10 86 95 01/01/22 10:05 92 H 95 01/01/22 10:04 92 H 93 01/01/22 10:00 102 H 133/82 95 01/01/22 09:56 91 H 94 01/01/22 09:55 87 96 01/01/22 09:50 92 H 97 01/01/22 09:49 97 H 93 01/01/22 09:45 91 H 97 01/01/22 09:44 90 122/61 01/01/22 09:41 85 94 01/01/22 09:40 86 96 01/01/22 09:35 85 93 01/01/22 09:30 89 123/62 96 01/01/22 09:25 87 97 01/01/22 09:23 94 H 94 01/01/22 09:20 91 H 97 01/01/22 09:15 93 H 125/70 95 01/01/22 09:10 85 97 01/01/22 09:09 85 92 01/01/22 09:05 88 97 01/01/22 09:03 88 93 01/01/22 09:00 90 123/64 95 01/01/22 08:57 90 93 01/01/22 08:56 97.7 F 20 01/01/22 08:55 97 H 96 01/01/22 08:52 91 H 94 01/01/22 08:50 91 H 95 01/01/22 08:46 92 H 94 01/01/22 08:45 95 H 129/65 94 01/01/22 08:40 101 H 95 01/01/22 08:35 98 H 97 01/01/22 08:30 107 H 123/76 96 01/01/22 08:28 104 H 94 01/01/22 08:25 102 H 97 01/01/22 08:20 96 H 94 01/01/22 08:19 92 H 94 01/01/22 08:15 97 H 132/78 96 01/01/22 08:13 94 H 94 01/01/22 08:10 96 H 97 01/01/22 08:07 98 H 94 01/01/22 08:05 91 H 96 01/01/22 08:00 97 H 131/79 95 01/01/22 07:55 100 H 97 01/01/22 07:50 91 H 96 01/01/22 07:45 95 H 128/80 95 01/01/22 07:40 93 H 96 01/01/22 07:37 96 H 93 01/01/22 07:35 94 H 96 01/01/22 07:31 97.9 F 92 H 20 139/82 01/01/22 07:30 92 H 95 01/01/22 07:25 105 H 95 01/01/22 07:23 97 H 94 01/01/22 07:20 96 H 95 01/01/22 07:17 91 H 93 01/01/22 07:15 97 H 127/78 96 01/01/22 07:12 91 H 94 01/01/22 07:10 95 H 94 01/01/22 07:07 92 H 91 01/01/22 07:05 98 H 97 01/01/22 07:01 94 H 130/76 01/01/22 07:00 91 H 18 95 01/01/22 06:55 102 H 95 01/01/22 06:54 92 H 94 01/01/22 06:50 98 H 95 01/01/22 06:47 93 H 94 06/20/22 06:45 99 H 125/71 97 01/01/22 06:41 95 H 94 01/01/22 06:40 91 H 95 01/01/22 06:35 94 H 97 01/01/22 06:33 88 94 01/01/22 06:30 88 18 118/74 94 01/01/22 06:27 88 94 01/01/22 06:25 93 H 95 01/01/22 06:21 95 H 93 01/01/22 06:20 87 95 01/01/22 06:16 96 H 124/82 94 01/01/22 06:15 92 H 96 01/01/22 06:10 93 H 97 01/01/22 06:05 100 H 97 01/01/22 06:00 91 H 18 121/71 98 01/01/22 05:55 93 H 95 01/01/22 05:50 94 H 96 01/01/22 05:45 104 H 135/85 98 01/01/22 05:40 102 H 96 01/01/22 05:37 97.7 F 01/01/22 05:35 88 99 01/01/22 05:32 92 H 92 01/01/22 05:30 95 H 18 136/84 98 01/01/22 05:25 83 96 01/01/22 05:20 83 98 01/01/22 05:15 82 98 01/01/22 05:14 82 128/75 01/01/22 05:10 85 97 01/01/22 05:05 82 99 01/01/22 05:03 89 92 01/01/22 05:00 80 127/74 97 01/01/22 04:55 91 H 93 01/01/22 04:50 84 97 01/01/22 04:45 85 97 01/01/22 04:44 92 H 132/80 01/01/22 04:43 101 H 90 01/01/22 04:40 87 98 01/01/22 04:35 87 98 01/01/22 04:32 94 H 89 L 01/01/22 04:30 85 130/71 96 01/01/22 04:25 86 97 01/01/22 04:20 80 96 01/01/22 04:16 84 131/77 92 01/01/22 04:15 81 96 01/01/22 04:10 81 96 01/01/22 04:05 83 97 01/01/22 04:01 84 113/74 01/01/22 04:00 84 18 98 01/01/22 03:55 82 99 01/01/22 03:50 90 98 01/01/22 03:45 94 H 98 01/01/22 03:44 89 123/75 01/01/22 03:40 85 99 01/01/22 03:35 85 98 01/01/22 03:30 85 18 122/72 99 01/01/22 03:25 100 H 85 L 01/01/22 03:24 93 H 99 01/01/22 03:23 97.9 F 01/01/22 03:19 85 98 01/01/22 03:15 82 113/57 L 01/01/22 03:14 83 99 01/01/22 03:09 89 98 01/01/22 03:05 97 H 93 01/01/22 03:04 82 97 01/01/22 03:00 18 01/01/22 02:59 87 102/57 L 97 01/01/22 02:54 80 96 Coding Level of Care Code None Diagnoses Supervision of elderly primigravida, antepartum O09.519
[2022-01-01] MEDS ORDERED: LIDOCAINE 2%/EPINEPHRINE 1:200,000 20 ML SDV ONE (15:12)
[2022-01-01] MEDS ORDERED: OXYTOCIN 10 UNITS/ML 10ML VIAL ONE (15:12)
[2022-01-01] MEDS ORDERED: ONDANSETRON INJ 2 MG/ML 2 ML VIAL ONE (15:27)
[2022-01-01] MEDS ORDERED: MoRPHine SULFATE PF 1 MG/ML 10 ML AMP/VIAL ONE (15:49)
[2022-01-01] MEDS ORDERED: ePHEDrine sulfate 50 MG/ML SYR ONE (15:55)
[2022-01-01] MEDS ORDERED: PHENYLEPHRINE 100MCG/ML 5ML SYR ONE (15:55)
[2022-01-01] MEDS ORDERED: HYDROCORTISONE ACETATE 25 MG SUPP PR PRN (16:08)
[2022-01-01] MEDS ORDERED: BENZOCAINE 20% AER SPR 82.5 GM CAN EXT PRN (16:08)
[2022-01-01] MEDS ORDERED: MAGNESIUM HYDROXIDE SUSP 30 ML UDC PO PRN (16:08)
[2022-01-01] MEDS ORDERED: SENNA 8.6 MG TAB PO PRN (16:08)
[2022-01-01] MEDS ORDERED: DIPHTHERIA/TETANUS/PERTUSSIS 0.5 ML SYR/VIAL IM ONE (16:08)
[2022-01-01] MEDS ORDERED: LACTATED RINGER'S 1,000 ML IV SCH (16:15)
--- NOTE | 2022-01-01 16:24 | Operative Report ---
PG Post Operative Report Pre & Post Diagnosis Operation Date: 01/01/22 15:30 Pre-Op Diagnosis: at 37w5d PROM IOL Failure to Descend Tachycardia Post-Op Diagnosis: Same I identified the patient and participated in the time-out.: Yes Procedure Operation Date: 01/01/22 15:30 Actual Procedures Primary Low Transverse Section Surgeon Carmen Young MD Medical Field Representative Sergio Estimated Blood Loss 700 Findings Consistent with Post-Op Diagnosis Specimens Placenta, Cord blood Anesthesia Type L&D Only Epidural Exists Complications none Disposition Accompanied Patient To Recovery: Yes Disposition: L&D Description of Procedure The patient was placed operating table in the supine position with a leftward tilt. She was prepped and draped in standard sterile fashion. The anesthetic was tested and found to be adequate. A time-out was held, identifying correct patient, procedure, positioning and preoperative antibiotics. There were no concerns. Of note the archer was draining reddish urine from a traumatic archer insertion at the start of procedure. A Pfannenstiel skin incision was made with a knife and taken down to the underlying layer of fascia. The fascia was incised in the midline with the knife and taken out laterally with scissors. The superior edge of the fascial incision was grasped, elevated and dissected off the underlying rectus both superiorly and inferiorly. The muscles were bluntly in the midline. The peritoneum was entered bluntly. The incision was then stretched. The Maurizio and then bladder retractor were placed. The vesicouterine peritoneum was identified, entered with scissors and taken out laterally with scissors. The bladder flap was created digitally. A hysterotomy incision was created transversely in the lower uterine segment, final entry being accomplished in a blunt manner with the circular saw operator's fingers. Clear amniotic fluid was encountered. The circular saw operator's hand was used to elevate the head to the hysterotomy with an assist from below due to significant molding. The head was delivered using mild fundal pressure, and the shoulders and body followed without difficulty. The cord was clamped and cut and the was then handed off to the awaiting zinc furnace charger. Cord blood was obtained. The placenta was Manually extracted. The uterus was exteriorized and cleared of all clot and debris with moistened laparotomy sponges. A left cervical extension was noted and repaired first, in a running locked manner. The hysterotomy incision was repaired in two layers, the first in a running locked layer, the second in an imbricating layer. The ovaries and tubes were seen to be normal bilaterally. The uterus was gently replaced in the abdomen, and the gutters were cleared of clot and debris. Abi was applied due to mild oozing from the extension area and held for 90 seconds of pressure. Initial inspection appeared hemostatic, but after repositioning the uterus to examine the opposite angle, bleeding resumed. Digital exam showed an area which had torn open at the apex of the extension and needed oversewing, which was provided with 1-vicryl in a running locked manner over the area of the L cervical extension. After this, the area was fully hemostatic. The rectus muscles were allowed to reapproximate naturally. The fascia was then reapproximated with 1 Vicryl in a running nonlocked manner. The fascia was examined and found to be free of defect following closure. The subcutaneous tissue was copiously irrigated and reapproximated with 0-chromic, then the skin edges were closed with 4-0 monocryl in a subcuticular fashion. A dermabond dressing was applied. The archer was found to be draining clearing yellow urine at completion of the procedure. I attest to the content of the Intraoperative Record and any orders documented therein. Any exceptions are noted below. I attest to the content of the Intraoperative Record and any orders documented therein. Any exceptions are noted below.
--- NOTE | 2022-01-01 17:20 | Anesthesiology Progress Note ---
Date of Service January 01, 2022 Anesthesia Post Procedure Vital Signs Vital Signs: Temp Pulse Resp BP Pulse Ox 01/01/22 17:15 87 94 01/01/22 17:14 90 96 01/01/22 17:09 89 110/50 L 96 01/01/22 17:08 92 H 94 01/01/22 17:04 95 H 96 01/01/22 16:59 93 H 103/59 L 97 01/01/22 16:58 94 H 94 01/01/22 16:54 95 H 97 01/01/22 16:49 93 H 102/61 97 01/01/22 16:46 95 H 93 01/01/22 16:44 95 H 98 01/01/22 16:41 88 93 01/01/22 16:39 90 99/58 L 100 01/01/22 16:34 85 98 01/01/22 16:30 91 H 93 01/01/22 16:29 90 104/58 L 97 01/01/22 15:11 102 H 96 01/01/22 15:08 95 H 93 01/01/22 15:06 100 H 96 01/01/22 15:01 98 H 132/85 95 01/01/22 14:59 115 H 94 01/01/22 14:56 109 H 95 01/01/22 14:53 99 H 94 01/01/22 14:51 100 H 95 01/01/22 14:46 99 H 94 01/01/22 14:44 99 H 138/64 94 01/01/22 14:41 104 H 94 01/01/22 14:36 98 H 94 01/01/22 14:31 109 H 96 01/01/22 14:30 93 H 136/71 01/01/22 14:28 91 H 92 01/01/22 14:26 116 H 93 01/01/22 14:22 93 H 94 01/01/22 14:21 105 H 83 L 01/01/22 14:16 103 H 88 L 01/01/22 14:14 122 H 117/77 01/01/22 14:11 91 H 76 L 01/01/22 14:06 88 96 01/01/22 14:01 105 H 96 01/01/22 14:00 20 01/01/22 13:57 100 H 93 01/01/22 13:56 105 H 97 01/01/22 13:51 120 H 97 01/01/22 13:49 97 H 94 01/01/22 13:46 99 H 96 01/01/22 13:44 96 H 124/72 01/01/22 13:42 101 H 93 01/01/22 13:41 96 H 95 01/01/22 13:37 88 94 01/01/22 13:36 85 95 01/01/22 13:32 100 H 126/64 01/01/22 13:31 114 H 95 01/01/22 13:26 99 H 95 01/01/22 13:21 104 H 96 01/01/22 13:20 36.6 C 92 H 94 01/01/22 13:15 110 H 80 L 01/01/22 13:14 100 H 129/72 01/01/22 13:10 95 H 98 01/01/22 13:09 103 H 89 L 01/01/22 13:05 108 H 96 01/01/22 13:03 98 H 91 01/01/22 13:00 36.6 C 89 20 97 01/01/22 12:59 86 123/76 01/01/22 12:55 94 H 97 01/01/22 12:50 93 H 98 01/01/22 12:45 89 98 01/01/22 12:44 93 H 128/81 01/01/22 12:40 99 H 95 01/01/22 12:38 109 H 94 01/01/22 12:35 97 H 95 01/01/22 12:31 101 H 127/81 01/01/22 12:30 99 H 98 01/01/22 12:26 111 H 93 01/01/22 12:25 102 H 96 01/01/22 12:20 107 H 97 01/01/22 12:15 95 H 141/93 H 97 01/01/22 12:10 100 H 97 01/01/22 12:05 96 H 99 01/01/22 12:00 88 18 99 01/01/22 11:59 89 133/68 01/01/22 11:55 110 H 98 01/01/22 11:52 99 H 93 01/01/22 11:50 97 H 100 01/01/22 11:45 88 131/75 98 01/01/22 11:40 90 97 01/01/22 11:35 91 H 98 01/01/22 11:32 82 122/80 01/01/22 11:30 87 96 01/01/22 11:25 91 H 96 01/01/22 11:20 90 97 01/01/22 11:15 87 122/72 96 01/01/22 11:10 93 H 98 01/01/22 11:07 106 H 93 01/01/22 11:05 95 H 97 01/01/22 11:01 85 123/75 94 01/01/22 11:00 36.5 C 85 20 96 01/01/22 10:56 92 H 94 01/01/22 10:55 87 96 01/01/22 10:50 96 H 96 01/01/22 10:49 90 94 01/01/22 10:45 92 H 127/74 96 01/01/22 10:40 91 H 98 01/01/22 10:35 95 H 98 01/01/22 10:31 87 138/74 01/01/22 10:30 91 H 99 01/01/22 10:25 87 98 01/01/22 10:20 93 H 96 01/01/22 10:16 94 H 126/71 01/01/22 10:15 98 H 97 01/01/22 10:11 87 94 01/01/22 10:10 86 95 01/01/22 10:05 92 H 95 01/01/22 10:04 92 H 93 01/01/22 10:00 102 H 18 133/82 95 01/01/22 09:56 91 H 94 01/01/22 09:55 87 96 01/01/22 09:50 92 H 97 01/01/22 09:49 97 H 93 01/01/22 09:45 91 H 97 01/01/22 09:44 90 122/61 01/01/22 09:41 85 94 01/01/22 09:40 86 96 01/01/22 09:35 85 93 01/01/22 09:30 89 123/62 96 01/01/22 09:25 87 97 01/01/22 09:23 94 H 94 01/01/22 09:20 91 H 97 01/01/22 09:15 93 H 125/70 95 01/01/22 09:10 85 97 01/01/22 09:09 85 92 01/01/22 09:05 88 97 01/01/22 09:03 88 93 01/01/22 09:00 90 20 123/64 95 01/01/22 08:57 90 93 01/01/22 08:56 36.5 C 20 01/01/22 08:55 97 H 96 01/01/22 08:52 91 H 94 01/01/22 08:50 91 H 95 01/01/22 08:46 92 H 94 01/01/22 08:45 95 H 129/65 94 01/01/22 08:40 101 H 95 01/01/22 08:35 98 H 97 01/01/22 08:30 107 H 123/76 96 01/01/22 08:28 104 H 94 01/01/22 08:25 102 H 97 01/01/22 08:20 96 H 94 01/01/22 08:19 92 H 94 01/01/22 08:15 97 H 132/78 96 01/01/22 08:13 94 H 94 01/01/22 08:10 96 H 97 01/01/22 08:07 98 H 94 01/01/22 08:05 91 H 96 01/01/22 08:00 97 H 20 131/79 95 01/01/22 07:55 100 H 97 01/01/22 07:50 91 H 96 01/01/22 07:45 95 H 128/80 95 01/01/22 07:40 93 H 96 01/01/22 07:37 96 H 93 01/01/22 07:35 94 H 96 01/01/22 07:31 36.6 C 92 H 20 139/82 01/01/22 07:30 92 H 95 01/01/22 07:25 105 H 95 01/01/22 07:23 97 H 94 01/01/22 07:20 96 H 95 01/01/22 07:17 91 H 93 01/01/22 07:15 97 H 127/78 96 06 07:12 91 H 94 01/01/22 07:10 95 H 94 01/01/22 07:07 92 H 91 01/01/22 07:05 98 H 97 01/01/22 07:01 94 H 130/76 01/01/22 07:00 91 H 18 95 01/01/22 06:55 102 H 95 01/01/22 06:54 92 H 94 01/01/22 06:50 98 H 95 01/01/22 06:47 93 H 94 01/01/22 06:45 99 H 125/71 97 01/01/22 06:41 95 H 94 01/01/22 06:40 91 H 95 01/01/22 06:35 94 H 97 01/01/22 06:33 88 94 01/01/22 06:30 88 18 118/74 94 01/01/22 06:27 88 94 01/01/22 06:25 93 H 95 01/01/22 06:21 95 H 93 01/01/22 06:20 87 95 01/01/22 06:16 96 H 124/82 94 01/01/22 06:15 92 H 96 01/01/22 06:10 93 H 97 01/01/22 06:05 100 H 97 01/01/22 06:00 91 H 18 121/71 98 01/01/22 05:55 93 H 95 01/01/22 05:50 94 H 96 01/01/22 05:45 104 H 135/85 98 01/01/22 05:40 102 H 96 01/01/22 05:37 36.5 C 01/01/22 05:35 88 99 01/01/22 05:32 92 H 92 01/01/22 05:30 95 H 18 136/84 98 01/01/22 05:25 83 96 01/01/22 05:20 83 98 01/01/22 05:15 82 98 01/01/22 05:14 82 128/75 01/01/22 05:10 85 97 01/01/22 05:05 82 99 01/01/22 05:03 89 92 01/01/22 05:00 80 127/74 97 01/01/22 04:55 91 H 93 01/01/22 04:50 84 97 01/01/22 04:45 85 97 06 04:44 92 H 132/80 01/01/22 04:43 101 H 90 01/01/22 04:40 87 98 01/01/22 04:35 87 98 01/01/22 04:32 94 H 89 L 01/01/22 04:30 85 130/71 96 01/01/22 04:25 86 97 01/01/22 04:20 80 96 01/01/22 04:16 84 131/77 92 01/01/22 04:15 81 96 01/01/22 04:10 81 96 01/01/22 04:05 83 97 01/01/22 04:01 84 113/74 01/01/22 04:00 84 18 98 01/01/22 03:55 82 99 01/01/22 03:50 90 98 01/01/22 03:45 94 H 98 01/01/22 03:44 89 123/75 01/01/22 03:40 85 99 01/01/22 03:35 85 98 01/01/22 03:30 85 18 122/72 99 01/01/22 03:25 100 H 85 L 01/01/22 03:24 93 H 99 01/01/22 03:23 36.6 C 01/01/22 03:19 85 98 01/01/22 03:15 82 113/57 L 01/01/22 03:14 83 99 01/01/22 03:09 89 98 01/01/22 03:05 97 H 93 01/01/22 03:04 82 97 01/01/22 03:00 18 01/01/22 02:59 87 102/57 L 97 01/01/22 02:54 80 96 01/01/22 02:49 82 96 01/01/22 02:45 79 99/54 L 01/01/22 02:44 84 95 01/01/22 02:39 78 97 01/01/22 02:34 85 96 01/01/22 02:31 81 107/59 L 01/01/22 02:30 18 01/01/22 02:29 83 95 01/01/22 02:26 83 93 01/01/22 02:24 75 95 01/01/22 02:19 85 96 01/01/22 02:15 80 106/58 L 01/01/22 02:14 80 97 01/01/22 02:09 79 97 01/01/22 02:04 78 97 01/01/22 02:02 91 H 92 01/01/22 02:00 36.6 C 18 01/01/22 01:59 92 H 99 01/01/22 01:54 81 99 01/01/22 01:49 84 98 01/01/22 01:48 101 H 91 01/01/22 01:46 81 109/62 01/01/22 01:44 81 98 01/01/22 01:39 84 98 01/01/22 01:38 86 85 L 01/01/22 01:34 84 98 01/01/22 01:31 89 91 01/01/22 01:30 18 01/01/22 01:29 87 103/56 L 97 01/01/22 01:24 81 97 01/01/22 01:19 82 97 01/01/22 01:14 83 109/59 L 98 01/01/22 01:09 86 97 01/01/22 01:05 87 18 90 01/01/22 01:04 82 100 01/01/22 00:59 87 117/65 100 01/01/22 00:57 93 H 117/66 01/01/22 00:55 92 H 111/65 01/01/22 00:54 92 H 99 01/01/22 00:53 94 H 120/67 01/01/22 00:51 90 125/69 01/01/22 00:49 94 H 127/73 100 01/01/22 00:47 92 H 127/75 01/01/22 00:45 88 137/75 01/01/22 00:44 91 H 99 01/01/22 00:43 81 140/77 01/01/22 00:41 65 136/75 01/01/22 00:39 77 138/77 100 01/01/22 00:34 76 100 01/01/22 00:29 77 100 01/01/22 00:25 36.6 C 01/01/22 00:24 81 97 01/01/22 00:13 18 01/01/22 00:12 77 99 01/01/22 00:04 73 136/86 01/01/22 00:00 18 12/31/21 23:31 75 162/88 H 12/31/21 23:30 18 12/31/21 23:00 18 12/31/21 22:31 71 143/86 H 12/31/21 22:30 36.8 C 18 12/31/21 22:00 18 12/31/21 21:31 83 139/93 12/31/21 21:30 18 12/31/21 20:46 36.7 C 86 18 125/87 12/31/21 20:26 18 12/31/21 20:00 18 12/31/21 19:10 36.7 C 18 12/31/21 19:02 103 H 127/89 12/31/21 18:41 96 H 146/85 H 12/31/21 18:39 36.9 C 20 Pain Intensity Bilateral Perineal: Pain Intensity: 3 Transfer of Care Handoff Completed per policy Notes Mental Status: alert / awake / arousable and participated in evaluation Patient Amnestic to Procedure: Yes Nausea / Vomiting: adequately controlled Pain: adequately controlled Airway Patency, RR, SpO2: stable & adequate BP & HR: stable & adequate Hydration State: stable & adequate Anesthetic Complications: no major complications apparent and Pt Satisfied with anesthetic care Notes: epidural removed with tip intact
[2022-01-01] MEDS: OXYTOCIN 20 UNITS in LACTATED RINGER'S 1,000 ML IV SCH (17:27)
[2022-01-01] MEDS: SIMETHICONE 80 MG CHEW PO SCH ×2 (17:39→20:35)
[2022-01-01] MEDS ORDERED: KETOROLAC 30 MG/ML VIAL ONE (17:47)
[2022-01-01] MEDS: KETOROLAC 30 MG/ML VIAL IV PRN (17:51)
[2022-01-01] MEDS ORDERED: ONDANSETRON INJ 2 MG/ML 2 ML VIAL IV PRN (18:10)
[2022-01-01] MEDS ORDERED: NALOXONE HCL 0.08 MG in SYRINGE 1.8 ML IV PRN (18:10)
[2022-01-01] MEDS ORDERED: MoRPHine SULFATE 2 MG/ML CARP IV PRN (18:10)
[2022-01-01] MEDS ORDERED: MoRPHine SULFATE PF 1 MG/ML 10 ML AMP/VIAL EPI ONE (18:10)
[2022-01-01] MEDS ORDERED: KETOROLAC 30 MG/ML VIAL IV PRN (18:10)
[2022-01-01] MEDS ORDERED: LACTATED RINGER'S 500 ML IV PRN (18:10)
[2022-01-01] MEDS ORDERED: DC INTRASPINAL MORPHINE SCH (18:15)
[2022-01-01] MEDS ORDERED: NO NARCOTICS OR SEDATIVES SCH (18:15)
[2022-01-01] MEDS ORDERED: SODIUM CHLORIDE 0.9% 1000ML 1,000 ML IV SCH (18:15)
[2022-01-01] MEDS: DOCUSATE SODIUM 100 MG CAP PO SCH (20:35)
[2022-01-02] MEDS: OXYTOCIN 20 UNITS in LACTATED RINGER'S 1,000 ML IV SCH (01:41)
[2022-01-02] MEDS: ONDANSETRON INJ 2 MG/ML 2 ML VIAL IV PRN (03:10)
[2022-01-02] MEDS: KETOROLAC 30 MG/ML VIAL IV PRN (05:30)
--- NOTE | 2022-01-02 06:09 | Obstetrical Progress Note ---
Date of Service January 02, 2022 Assessment & Plan (1) Encounter for care and examination after delivery: Plan: Pt is a 41 year old female s/p LTCS POD1 who delivered via at 37 5/7 weeks. complicated by AMA, IVF, Obesity, GDM on insulin, and polyhydramnios. -GBS(-), Rubella immune, O+, Antibody negative -Continue routine care -Pain control with tylenol, toradol, oxycodone, if pt can tolerate PO meds, ibuprofen given rather than toradol -Advance diet as tolerated, switch zofran to reglan 1st and phenergan 2nd for nausea -Ambulation as tolerated and encouraged -Attempt voiding trial later today -Encouraged , discuss with counsellor if necessary, continue supplementing with formula -Hgb 11.5 today from 14.7 yesterday, continue to monitor -BSGs under control at this time, continue to monitor as diet is advanced -OB f/u appointment in [address] Young (2) Hypoxia: Plan: -Likely secondary to narcotic use during operation and morbid obesity with history of EDISON -On 2LNC, wean O2 as able -may need CPAP at night temporarily -No indications for PE at this time -incentive spirometry ordered -continue to monitor Admission and Anticipated Discharge Date Admission Date: December 31, 2021 Supervising Physician Co-Signing Physician Notes Resident Physician Supervision Note: I interviewed and examined the patient. Discussed with Dr. Sanabria and agree with findings and plan as documented in the note. Any exceptions or clarifications are listed here: Pain well managed; med list reviewed / avoid duplication of classes. Nausea not well addressed by zofran; does have bowel sounds and flatus so likely not ileus, but would suggest moving to trial of reglan and/or phenergan since zofran not seeming effective. Desaturations overnight indicate her EDISON may be worse than she believed, which we discussed can also be a temporary condition due to peripartum edema. Using NCO2 and can titrate to allow patient to sit upright and breastfeed as desired, which had at times made her feel dizzy overnight. No SOB and no cough or chest pain. Archer still in situ. Not ready to ambulate yet. Will need nurse supervision/assist at first given her complaint of occasional dizziness. Also notes that she has not eaten since Saturday due to pre-existing nausea and has not slept for last two nights due to labor process, so may simply need rest and nutrition as she has been physically quite stressed by these recent events. Documented By: Carmen Young MD, FACOG Subjective Pt is a 41 year old female s/p LTCS POD1 who delivered via at 37 5/7 weeks. complicated by AMA, IVF, Obesity, GDM on insulin, and polyhydramnios. Pt has the biggest complaint of nausea with 2 episodes of vom iting overnight, states that the zofran has not been helping much with her nausea. Reports that pain is under control with it being only a 1-2/10 controlled with toradol. Pt has a archer catheter in. Lochia moderate, not much ambulation as of yet due to dizziness, no BM, but has passed gas. Reports having difficulty with milk production and getting baby to latch on, has been feeding baby formula for which baby takes well. Reports sweating and soaking her gown, but no noted fevers in her chart. She has a new oxygen requirement s/p that occurred overnight. Pt does report a history of EDISON for which she uses a device called silent night, has no history of CPAP use. Denies feeling SOB, chest pain, calf pain, or headache. No other complaints as of this morning. Review of Systems Review of Systems: All systems reviewed & are unremarkable except as noted in HPI & below Physical Exam Constitutional: well nourished, + morbidly obese and cooperative; no acute distress Eyes: + anicteric sclerae Neck: trachea midline, no thyromegaly Respiratory: normal respiratory effort; no respiratory distress Auscultation: + diminished lung sounds (at the bases b/l) Cardiovascular: Rate/Rhythm: regular rate and regular rhythm Extremities: + edema (mild at the ankles L>R); no calf tenderness Gastrointestinal (Abdomen): Inspection/Auscultation: normal bowel sounds Percussion/Palpation: abdomen soft; abdomen nontender Firm uterus fundus palpated at the level of the umbilicus. Surgical incision closed, clean, and without erythema. Significant pannus. Musculoskeletal: Head/Neck/Chest: normocephalic and head atraumatic Skin: normal turgor; no rashes Neurologic: moves all extremities Psychiatric: A+Ox3, euthymic affect Lymphatic: no cervical or axillary lymphadenopathy Results & Data ([facility]) Vital Signs (Past 12 Hours) Vital Signs Temp Pulse Pulse Resp BP BP Pulse Ox 01/02/22 04:08 16 96 01/02/22 03:00 16 98 01/02/22 02:12 16 99 01/02/22 00:56 16 97 01/02/22 00:08 18 97 01/01/22 23:30 36.4 C L 79 16 118/78 98 01/01/22 23:00 18 97 01/01/22 21:54 16 98 01/01/22 21:15 18 97 01/01/22 20:05 36.4 C L 81 16 111/74 98 01/01/22 19:25 18 97 01/01/22 18:59 87 116/59 L 97 01/01/22 18:54 88 92 01/01/22 18:49 98 H 103/55 L 90 01/01/22 18:47 95 H 90 01/01/22 18:44 80 98 01/01/22 18:39 88 114/56 L 98 01/01/22 18:37 84 92 01/01/22 18:34 86 95 01/01/22 18:32 80 93 01/01/22 18:30 36.6 C 20 01/01/22 18:29 87 112/56 L 99 01/01/22 18:26 83 93 01/01/22 18:24 87 90 01/01/22 18:19 85 106/56 L 95 01/01/22 18:18 83 92 01/01/22 18:14 84 93 01/01/22 18:09 81 109/60 91
[2022-01-02] MEDS: LEVOTHYROXINE SODIUM 200 MCG TABLET PO SCH (06:23)
[2022-01-02 06:37] LABS: Eosinophils # (auto) 0.01 K/uL (0-0.5); Eosinophils % (auto) 0.1 %; Hematocrit (blood only) 34.5 % (37-47); Hemoglobin 11.5 g/dL (12.0-16.0); Immature Granulocytes # (auto) 0.08 K/uL (0.00-0.02); Immature Granulocytes % (auto) 0.4 %; Lymphocytes # (auto) 0.78 K/uL (1.2-3.4); Lymphocytes % (auto) 4.1 %; Mean Corpuscular Hemoglobin 29.6 pg (25-34); Mean Corpuscular Hgb Conc 33.3 g/dL (32-36); Mean Corpuscular Volume 88.7 fL (80-100); Mean Platelet Volume 11.8 fL (7.4-10.4); Monocytes # (auto) 1.23 K/uL (0.11-0.59); Monocytes % (auto) 6.4 %; Neutrophils # (auto) 16.98 K/uL (1.4-6.5); Platelet Count 163 K/uL (130-400); RDW Coefficient of Variation 14.3 % (11.5-14.5); RDW Standard Deviation 46.5 fL (36.4-46.3); Red Blood Count 3.89 M/uL (4.2-5.4); White Blood Count 19.08 K/uL (4.8-10.8)
[2022-01-02] MEDS: FERROUS SULFATE 325 MG TAB PO SCH (08:37)
[2022-01-02] MEDS: DOCUSATE SODIUM 100 MG CAP PO SCH ×2 (08:37→21:07)
[2022-01-02] MEDS: SIMETHICONE 80 MG CHEW PO SCH ×4 (08:37→21:07)
[2022-01-02] MEDS: PRENATAL VITAMIN 1 TAB PO SCH (08:37)
[2022-01-02] MEDS ORDERED: PROMETHAZINE HCL 25 MG in SODIUM CHLORIDE 0.9% 50 ML IV PRN ×2 (12:10→12:15)
[2022-01-02] MEDS ORDERED: METOCLOPRAMIDE HCL INJ 5 MG/ML 2 ML VIAL IV PRN (12:10)
[2022-01-02] MEDS ORDERED: diphenhydrAMINE Capsule 25 MG CAP PO PRN (12:12)
[2022-01-02] MEDS ORDERED: MEPERIDINE HCL 50 MG/ML CARP IV PRN (12:13)
[2022-01-02] MEDS ORDERED: ONDANSETRON INJ 2 MG/ML 2 ML VIAL IV PRN (12:15)
[2022-01-02] MEDS ORDERED: diphenhydrAMINE 50 MG/ML VIAL IV PRN (12:15)
[2022-01-02] MEDS: IBUPROFEN 600 MG TAB PO PRN ×2 (12:54→21:07)
[2022-01-02] MEDS: oxyCODONE/ACETAMINOPHEN 5mg/325mg TAB PO PRN ×2 (12:54→21:09)
[2022-01-02] MEDS ORDERED: bisacodyL 5 MG TABEC PO SCH (20:00)
[2022-01-03] MEDS: oxyCODONE/ACETAMINOPHEN 5mg/325mg TAB PO PRN (03:40)
[2022-01-03] MEDS: IBUPROFEN 600 MG TAB PO PRN ×4 (03:41→20:50)
--- NOTE | 2022-01-03 06:11 | Obstetrical Progress Note ---
Date of Service January 03, 2022 Assessment & Plan (1) Encounter for care and examination after delivery: Plan: Pt is a 41 year old female s/p LTCS POD2 who delivered via at 37 5/7 weeks. complicated by AMA, IVF, Obesity, GDM on insulin, and polyhydramnios. -GBS(-), Rubella immune, O+, Antibody negative -Continue routine care -Pain control with tylenol, Ibuprofen, oxycodone -Ambulation as tolerated and encouraged -Encouraged , discuss with counsellor if necessary, continue supplementing with formula -Hgb 11.5 yesterday, today's pending at the time of writing this note -OB f/u appointment in [address] Young (2) Hypoxia: Plan: -Likely secondary to narcotic use during operation and morbid obesity with history of EDISON, resolved -Now on room air -incentive spirometry ordered Admission and Anticipated Discharge Date Admission Date: December 31, 2021 Supervising Physician Co-Signing Physician Notes Resident Physician Supervision Note: I was present with Dr. Sanabria during the history and exam. I discussed the case with the resident and agree with the findings and plan as documented in the note. Any exceptions or clarifications are listed here: [None] Documented By: Marc Carias MD, FACOG Subjective Patient is a -0-1-1 41-year-old female status post delivered at 37 and 5/7 weeks, postop day 2. Patient seen at bedside this morning. No acute events reported overnight. Patient reports much improved nausea as compared to yesterday and is able to eat and drink without issue. Has not required any Reglan or Phenergan. Pain currently under control at a 3 out of 10 utilizing oxycodone. Patient would like to stay today into tomorrow. Improved latching of baby for breast-feeding compared to yesterday. Patient does have some concerns regarding some coughing that the baby did overnight. Otherwise continues to deny any chest pain, shortness of breath, nausea, vomiting, fever, chills, calf pain, or headaches. No other complaints this morning. Review of Systems Review of Systems: All systems reviewed & are unremarkable except as noted in HPI & below Physical Exam Constitutional: well nourished, + morbidly obese and cooperative; no acute distress Eyes: + anicteric sclerae Neck: trachea midline, no thyromegaly Respiratory: normal respiratory effort; no respiratory distress Auscultation: + diminished lung sounds (at the bases b/l) Cardiovascular: Rate/Rhythm: regular rate and regular rhythm Extremities: + edema (mild at the ankles L>R); no calf tenderness Gastrointestinal (Abdomen): Inspection/Auscultation: normal bowel sounds Percussion/Palpation: abdomen soft; abdomen nontender Musculoskeletal: Head/Neck/Chest: normocephalic and head atraumatic Skin: normal turgor; no rashes Neurologic: moves all extremities Psychiatric: A+Ox3, euthymic affect Lymphatic: no cervical or axillary lymphadenopathy Results & Data ([facility]) Vital Signs (Past 12 Hours) Vital Signs Temp Pulse Resp BP Pulse Ox 01/03/22 03:30 36.4 C L 88 18 120/76 96 01/02/22 23:20 36.8 C 86 18 110/73 96
[2022-01-03] MEDS: LEVOTHYROXINE SODIUM 200 MCG TABLET PO SCH (06:12)
[2022-01-03 07:27] LABS: Hematocrit (blood only) 28.7 % (37-47); Hemoglobin 9.9 g/dL (12.0-16.0)
[2022-01-03] MEDS: PRENATAL VITAMIN 1 TAB PO SCH (08:08)
[2022-01-03] MEDS: FERROUS SULFATE 325 MG TAB PO SCH (08:08)
[2022-01-03] MEDS: DOCUSATE SODIUM 100 MG CAP PO SCH ×2 (08:08→20:50)
[2022-01-03] MEDS: SIMETHICONE 80 MG CHEW PO SCH ×4 (08:08→20:50)
[2022-01-03] MEDS ORDERED: bisacodyL 10 MG SUPP PR PRN (16:08)
[2022-01-04] MEDS: IBUPROFEN 600 MG TAB PO PRN ×3 (01:20→10:31)
--- NOTE | 2022-01-04 05:59 | Obstetrical Progress Note ---
Date of Service January 04, 2022 Assessment & Plan (1) Encounter for care and examination after delivery: Plan: Pt is a 41 year old female s/p LTCS POD2 who delivered via at 37 5/7 weeks. complicated by AMA, IVF, Obesity, GDM on insulin, and polyhydramnios. -GBS(-), Rubella immune, O+, Antibody negative -Continue routine care, D/C today, discharge instructions reviewed with patient -Pain control with tylenol, Ibuprofen, oxycodone -Ambulation as tolerated and encouraged -Encouraged , discuss with counsellor if necessary, continue supplementing with formula -OB f/u appointment in [address] Young (2) Hypoxia: Plan: -Likely secondary to narcotic use during operation and morbid obesity with history of EDISON, resolved (01/03) -Now on room air -incentive spirometry ordered Admission and Anticipated Discharge Date Admission Date: December 31, 2021 Supervising Physician Co-Signing Physician Notes Resident Physician Supervision Note: I interviewed and examined the patient. Discussed with Dr. Sanabria and agree with findings and plan as documented in the note. Any exceptions or clarifications are listed here: [None] Documented By: Tatum Bates MD, FACOG Subjective Patient is a -0-1-1 41-year-old female status post delivered at 37 and 5/7 weeks, postop day 3. Patient seen at bedside this morning. No acute events reported overnight. Eating and drinking without issue.. Has not required any Reglan or Phenergan. Pain currently under control at a 3 out of 10 utilizing oxycodone. Patient would like to be discharged today. Improved latching of baby for breast-feeding compared to previous days. Otherwise continues to deny any chest pain, shortness of breath, nausea, vomiting, fever, chills, calf pain, or headaches. No other complaints this morning. Review of Systems 2 Review of Systems: All systems reviewed & are unremarkable except as noted in HPI & below Physical Exam Constitutional: well nourished, + morbidly obese and cooperative; no acute distress Eyes: + anicteric sclerae Neck: trachea midline, no thyromegaly Respiratory: normal respiratory effort; no respiratory distress Cardiovascular: Rate/Rhythm: regular rate and regular rhythm Extremities: + edema (mild at the ankles L>R); no calf tenderness Gastrointestinal (Abdomen): Inspection/Auscultation: normal bowel sounds Percussion/Palpation: abdomen soft; abdomen nontender Musculoskeletal: Head/Neck/Chest: normocephalic and head atraumatic Skin: normal turgor; no rashes Neurologic: moves all extremities Psychiatric: A+Ox3, euthymic affect Lymphatic: no cervical or axillary lymphadenopathy Results & Data ([facility]) Vital Signs (Past 12 Hours) Vital Signs Temp Pulse Resp BP Pulse Ox 01/04/22 00:00 36.4 C L 76 16 135/87 97 01/03/22 20:40 36.7 C 84 16 128/82 98
[2022-01-04] MEDS: LEVOTHYROXINE SODIUM 200 MCG TABLET PO SCH (06:46)
[2022-01-04] MEDS: DOCUSATE SODIUM 100 MG CAP PO SCH (08:05)
[2022-01-04] MEDS: FERROUS SULFATE 325 MG TAB PO SCH (08:05)
[2022-01-04] MEDS: PRENATAL VITAMIN 1 TAB PO SCH (08:06)
[2022-01-04] MEDS: SIMETHICONE 80 MG CHEW PO SCH (08:06)
--- NOTE | 2022-01-08 10:46 | Discharge Summary ---
Date of Service January 08, 2022 Admission HPI Per Admitting Provider 41yo @ 37 4/7, had PROM clear fluid today at 4pm. Is feeling mild ctx. No vaginal bleeding. + movement. complicated by: : 2 Full term: 0 Premature: 0 Total Number of Induced Abortions: 0 Total Number of Spontaneous Abortions: 1 Ectopics: 0 Multiple births: 0 Number of Living Children: 0 and Delivery Plans Covid Vaccine #1 07/14/20 (Moderna) Covid Vaccine #2 08/11/20 s/p Moderna booster s/p flu vaccine Donor Egg- 30 year old donor. AMA>40@del *Anatomy Scan @ 20wks * Echo - WNL *Growth scan @32wks *Weekly NST's @36 wks *Twice weekly NST @38wks *Weekly MARISSA's @38wks *Deliver by 41 wks IVF/ICSI * [place] [facility] [place] *Growth US Q4wks @28wks *Weekly NSTs @36wks *Weekly MARISSA's @36wks(ICSI only) Obesity (BMI between 35-39 @ beginning of ) *Growth US @ 32 wks *Weekly NSTs @ 36wks GDM on insulin *Wkly NSTs @32wks and Twice wkly @36wks *Serial growth US @28wks *Deliver by EDC Polyhydramnios *Weekly NST at Dx *Weekly MARISSA @ Dx *If pocket >16 Refer to MFM *Deliver between 39 0/7 and 39 6/7 Jan 11 IOL Discharge Data Consultations 12/31/21 19:55 Consult Anesthesiology Stat Procedures Performed Operation Date: 01/01/22 15:30 Actual Procedures p Section in LD(Bilateral) - Carmen Young MD Hospital Course (1) Encounter for care and examination after delivery: Patient reached complete dilation and pushed well but unfortunately was unable to effect descent of the vertex, likely due to CPD. She was offered and accepted a delivery, which was uncomplicated. She was discharged to home on POD#2 with usual instructions, percocet for pain management, and 6 week follow up plan. Pt is a 41 year old female s/p LTCS POD2 who delivered via at 37 5/7 weeks. complicated by AMA, IVF, Obesity, GDM on insulin, and polyhydramnios. -GBS(-), Rubella immune, O+, Antibody negative -Continue routine care, D/C today, discharge instructions reviewed with patient -Pain control with tylenol, Ibuprofen, oxycodone -Ambulation as tolerated and encouraged -Encouraged , discuss with counsellor if necessary, continue supplementing with formula -OB f/u appointment in [address] Young (2) Hypoxia: -Likely secondary to narcotic use during operation and morbid obesity with history of EDISON, resolved (01/03) -Now on room air -incentive spirometry ordered Coding Level of Care Code None Diagnoses Encounter for care and examination after delivery Z39.2 Hypoxia R09.02
== END 2022-01-04 14:30 | disposition home or self-care (01) | DRG 787 ==
LOC: 4S1 18:38 → OPB 18:38 → 4S1 19:55 → 4E2 01-01 19:10